=== PATIENT | male | born 1960 | race Caucasian/White ===

== ENCOUNTER → 2017-09-06 10:28 | Outpatient (CLI) | payer MEDICARE, MEDICAID, SELFPAY ==
[2017-09-06 10:41] LABS: Bacteria 0 SEEN /hpf (None Seen); Mucous, Urine 0 SEEN /hpf (<or=2+); Red Blood Cells-Urine 0 SEEN /hpf (0-5); Squamous Epithelial Cells - UA 0 SEEN /hpf (0-5); White Blood Cells 0 SEEN /hpf (0-5)
[2017-09-06 12:12] LABS: Absolute Lymphocyte Count 1.36 X10^3/ul (0.83-4.51); Absolute Neutrophil Count 3.2 X10^3/uL (2.0-7.7); Basophil# 0.02 X10^3/uL; Basophil% 0.4 % (0-1); Eosinophil# 0.27 X10^3/uL; Hematocrit 40.5 % (40-54); Hemoglobin 13.2 g/dl (13.0-16.5); Lymphocyte # 1.36 X10^3/ul (4.0); Lymphocyte % 25.2 % (19-41); Mean Corp Hgb Conc 32.6 g/gl (32-36); Mean Corpuscular Hgb 28.5 pg (27.0-32.0); Mean Corpuscular Volume 87.5 fL (80-94); Mean Platelet Vol. 11.2 fl (6.2-12.0); Monocyte# 0.51 X10^3/uL; Monocyte% 9.4 % (0-10); Neutrophil # 3.23 X10^3/uL (2.7-7.7); Neutrophil % 59.8 % (47-70); Platelet Count 139 K/mm3 (150-450); Red Blood Count 4.63 M/mm3 (4.6-6.2); White Blood Count 5.4 K/mm3 (4.4-11.0)
[2017-09-06 12:20] LABS: POSITIVE COUNT NO; POSITIVE DIFFERENTIAL NO; POSITIVE MORPHOLOGY NO
[2017-09-06 12:30] LABS: Color, Urine Yellow (Yellow); Glucose, Dipstick Normal (Normal); Ketone-Dipstick Negative (Negative); Leukocyte Esterase-Dipstick Negative /ul (Negative); Nitrite-Dipstick Negative (Negative); Occult Blood-Urine Negative /ul (Negative); Protein-Dipstick Negative (Negative); Urine Bilirubin Dipstick Negative (Negative); Urine Clarity Clear (Clear); Urine Urobilinogen Normal (Normal); Urine pH 6.5 (5.0 - 8.0)
[2017-09-06 12:38] LABS: Hemoglobin A1c 5.6 % (4.2-6.3)
[2017-09-06 12:42] LABS: Amphetamine Urine VISTA POSITIVE (<1000 ng/mL); Barbiturate Urine VISTA NEGATIVE (< 200 ng/mL); Benzodiazepine Urine VISTA NEGATIVE (< 200 ng/mL); Cocaine Urine VISTA NEGATIVE (< 300 ng/mL); Ecstacy Urine VISTA NEGATIVE (< 500 ng/mL); Methadone Urine VISTA NEGATIVE (< 300 ng/mL); PCP Urine VISTA NEGATIVE (< 25 ng/mL); THC Urine VISTA NEGATIVE (< 50 ng/mL); Vista UDS pH Range 6
[2017-09-06 12:50] LABS: AST(SGOT) 50 U/L (15-37); Alanine Aminotransfer ALT/SGPT 69 U/L (16-61); Albumin, Serum 3.4 g/dL (3.2-5.0); Alkaline Phosphatase 52 U/L (45-117); BUN 15 mg/dL (7-18); BUN/Creat Ratio 19.9 RATIO (10-20); Calcium,Total 8.2 mg/dL (8.5-10.1); Chloride 105 mmol/L (98-107); Creatinine, Serum 0.75 mg/dL (0.70-1.30); EST Glomerular Filtration Rate 113 mL/min (>60); Est Glom Filt Rate - Afr Amer 137 mL/min (>60); Globulin 3.5 g/dL (2.2-4.2); Glucose 86 mg/dL (74-106); Potassium 4.1 mmol/L (3.5-5.1); Protein, Total 6.9 g/dL (6.4-8.2); Sodium Level 139 mmol/L (136-145)
[2017-09-06 12:51] LABS: Anion Gap 5 (5-15); T4 Free Direct 1.76 ng/dL (0.76-1.46)
== END ==
PROVIDERS: Visit Provider Family Medicine
DX: R79.89 Other specified abnormal findings of blood chemistry (principal); E03.9 Hypothyroidism, unspecified; R73.02 Impaired glucose tolerance (oral); Z87.898 Personal history of other specified conditions
CPT/HCPCS: 36415; 80053; 80307; 81001; 83036; 84439; 84443; 85025

== ENCOUNTER → 2018-03-01 15:30 | Outpatient (CLI) | payer MEDICARE, MEDICAID, SELFPAY ==
[2018-03-01 17:04] LABS: Amphetamine Urine VISTA NEGATIVE (<1000 ng/mL); Barbiturate Urine VISTA NEGATIVE (< 200 ng/mL); Benzodiazepine Urine VISTA NEGATIVE (< 200 ng/mL); Cocaine Urine VISTA NEGATIVE (< 300 ng/mL); Ecstacy Urine VISTA NEGATIVE (< 500 ng/mL); Methadone Urine VISTA NEGATIVE (< 300 ng/mL); PCP Urine VISTA NEGATIVE (< 25 ng/mL); THC Urine VISTA NEGATIVE (< 50 ng/mL); Vista UDS pH Range 6
== END ==
PROVIDERS: Referring Provider Registered Nurse; Visit Provider Registered Nurse
DX: F19.10 Other psychoactive substance abuse, uncomplicated (principal); Z79.899 Other long term (current) drug therapy
CPT/HCPCS: 80307

== ENCOUNTER 2018-03-02 09:17 | Emergency (ER) | payer MEDICARE, MEDICAID, SELFPAY ==
[2018-03-02 09:19] VITALS: BP 168/97; PULSE 102; RESP 16; TEMP 36.4; O2SAT 99; BMI 20.7
[2018-03-02] MEDS: Haloperidol Lactate 5 MG/ML Vial IM (09:56)
[2018-03-02 10:09] LABS: Absolute Lymphocyte Count 1.28 X10^3/ul (0.83-4.51); Absolute Neutrophil Count 3.9 X10^3/uL (2.0-7.7); Basophil# 0.02 X10^3/uL; Basophil% 0.3 % (0-1); Eosinophil# 0.11 X10^3/uL; Eosinophils% 1.9 % (0-5); Hematocrit 43.3 % (40-54); Hemoglobin 14.5 g/dl (13.0-16.5); Lymphocyte # 1.28 X10^3/ul (4.0); Lymphocyte % 21.6 % (19-41); Mean Corp Hgb Conc 33.5 g/gl (32-36); Mean Corpuscular Hgb 29.9 pg (27.0-32.0); Mean Corpuscular Volume 89.3 fL (80-94); Mean Platelet Vol. 11.2 fl (6.2-12.0); Monocyte# 0.61 X10^3/uL; Monocyte% 10.3 % (0-10); Neutrophil # 3.88 X10^3/uL (2.7-7.7); Neutrophil % 65.6 % (47-70); Platelet Count 151 K/mm3 (150-450); RBC Distribution Width CV 16.3 % (11.6-14.6); RBC Distribution Width SD 53.3 fl (35.1-43.9); Red Blood Count 4.85 M/mm3 (4.6-6.2); White Blood Count 5.9 K/mm3 (4.4-11.0)
[2018-03-02 10:11] LABS: POSITIVE COUNT NO; POSITIVE DIFFERENTIAL NO; POSITIVE MORPHOLOGY NO
[2018-03-02 10:18] LABS: Amphetamine Urine VISTA NEGATIVE (<1000 ng/mL); Barbiturate Urine VISTA NEGATIVE (< 200 ng/mL); Benzodiazepine Urine VISTA NEGATIVE (< 200 ng/mL); Cocaine Urine VISTA NEGATIVE (< 300 ng/mL); Ecstacy Urine VISTA NEGATIVE (< 500 ng/mL); Methadone Urine VISTA NEGATIVE (< 300 ng/mL); PCP Urine VISTA NEGATIVE (< 25 ng/mL); THC Urine VISTA NEGATIVE (< 50 ng/mL); Vista UDS pH Range 7
[2018-03-02 10:25] LABS: Alcohol, Blood (Medical)-Serum < 3.0 mg/dL
[2018-03-02 10:38] LABS: ALB/GLOB Ratio 0.9 RATIO (0.9-2.4); AST(SGOT) 37 U/L (15-37); Alanine Aminotransfer ALT/SGPT 50 U/L (16-61); Alkaline Phosphatase 74 U/L (45-117); Anion Gap 2 (5-15); BUN 16 mg/dL (7-18); BUN/Creat Ratio 19.7 RATIO (10-20); Chloride 103 mmol/L (98-107); Creatinine, Serum 0.81 mg/dL (0.70-1.30); EST Glomerular Filtration Rate 103 mL/min (>60); Est Glom Filt Rate - Afr Amer 125 mL/min (>60); Estimated Creatinine Clearance 89.42 ml/min; Globulin 4.3 g/dL (2.2-4.2); Glucose 112 mg/dL (74-106); Potassium 3.9 mmol/L (3.5-5.1); Protein, Total 8.3 g/dL (6.4-8.2); Sodium Level 138 mmol/L (136-145)
--- NOTE | 2018-03-02 10:48 | ED.VISSUMM ---
- ER Visit Summary Date of Service: 03/02/18 Chief Complaint: Agitated History of Present Illness: The patient is a [address] Montoya from the [facility]. He has a history of schizophrenia. He has been living in a [facility] for approximately 3 weeks and has been taking his medications appropriately. However, over the past couple of days they report that he has been more agitated and paranoid than usual. He has been screaming and yelling. He saw the psychiatrist yesterday and was not able to hold a conversation. He is appears internally activated and is speaking to people that are not there. They are asking that he be medically cleared and hospitalized. Review of systems: General: No fever, chills, cold sweats. Cardiovascular: No chest pain, palpitations. Respiratory: No cough, shortness of breath, dyspnea on exertion. Gastrointestinal: No abdominal pain, nausea, vomiting, diarrhea, melena, or hematochezia. Genitourinary: No dysuria, frequency, hematuria. Skin: No rash. Neuro: No headache, numbness, weakness. Physical Examination: Vitals: Stable. Afebrile. General: Well-nourished and well-developed. Head: Normocephalic atraumatic. Neck: Supple, no lymphadenopathy. No JVD. Nontender. Cardiovascular: Regular rate and rhythm. No murmurs. Respiratory: No respiratory distress. Clear to auscultation bilaterally. Abdominal: Soft, nontender, nondistended, normal bowel sounds. No guarding, rebound, or peritoneal signs. Back: Nontender. Extremities: Nontender, no edema. Skin: Normal color, no rash. Neurologic: Alert and oriented ?3. Cranial nerves II through XII are intact. Normal strength and sensation. Mental status exam: Patient appears their stated age. Good posture and grooming. Poor eye contact. Normal rate, volume, and latency of speech. No suicidal or homicidal ideation. No auditory or visual hallucinations. Flow of thought is tangential. Insight and judgment is poor. Test Results: CBC is normal. Tox screen is negative. Alcohol is negative. Chem-7 is remarkable for CO2 of 33 and glucose of 112. TSH is elevated at 19.8. LFTs are marked for total protein of 8.3 and globulin of 4.3. Emergency Department Course and Treatment: Patient is clearly internally stimulated. He is having conversations that are nonsensical and with people that are not present. He was given a dose of Haldol IM. Treatment Plan: Patient was discussed with the counseling center. They will be in to see him and arrange for admission to a psychiatric facility. Disposition: Pending. Impression: 1. Schizophrenia exacerbation. 2. Elevated TSH. This note was generated with [employer] dictation software. It may contain incorrect words, spelling, and punctuation that were not noted in review of the chart prior to signing ED Disposition - Plan for ED Patient: Chief Complaint: Mental Status Change Referrals: Care Physician,No Primary [Primary Care Provider] -
--- NOTE | 2018-03-02 10:51 | ED.DCSUM_ITS ---
- ER Visit Summary Date of Service: 03/02/18 Chief Complaint: Agitated History of Present Illness: The patient is a [address] Montoya from the counseling center. He has a history of schizophrenia. He has been living in a [facility] for approximately 3 weeks and has been taking his medications appr opriately. However, over the past couple of days they report that he has been more agitated and paranoid than usual. He has been screaming and yelling. He saw the psychiatrist yesterday and was not able to hold a conversation. He is appears internally activated and is speaking to people that are not there. They are asking that he be medically cleared and hospitalized. Review of systems: General: No fever, chills, cold sweats. Cardiovascular: No chest pain, palpitations. Respiratory: No cough, shortness of breath, dyspnea on exertion. Gastrointestinal: No abdominal pain, nausea, vomiting, diarrhea, melena, or hematochezia. Genitourinary: No dysuria, frequency, hematuria. Skin: No rash. Neuro: No headache, numbness, weakness. Physical Examination: Vitals: Stable. Afebrile. General: Well-nourished and well-developed. Head: Normocephalic atraumatic. Neck: Supple, no lymphadenopathy. No JVD. Nontender. Cardiovascular: Regular rate and rhythm. No murmurs. Respiratory: No respiratory distress. Clear to auscultation bilaterally. Abdominal: Soft, nontender, nondistended, normal bowel sounds. No guarding, rebound, or peritoneal signs. Back: Nontender. Extremities: Nontender, no edema. Skin: Normal color, no rash. Neurologic: Alert and oriented ?3. Cranial nerves II through XII are intact. Normal strength and sensation. Mental status exam: Patient appears their stated age. Good posture and grooming. Poor eye contact. Normal rate, volume, and latency of speech. No suicidal or homicidal ideation. No auditory or visual hallucinations. Flow of thought is tangential. Insight and judgment is poor. Test Results: CBC is normal. Tox screen is negative. Alcohol is negative. Chem-7 is remarkable for CO2 of 33 and glucose of 112. TSH is elevated at 19.8. LFTs are marked for total protein of 8.3 and globulin of 4.3. Emergency Department Course and Treatment: Patient is clearly internally stimulated. He is having conversations that are nonsensical and with people that are not present. He was given a dose of Haldol IM. Treatment Plan: Patient was discussed with the counseling center. They will be in to see him and arrange for admission to a psychiatric facility. Disposition: Pending. Impression: 1. Schizophrenia exacerbation. 2. Elevated TSH. This note was generated with [employer] dictation software. It may contain incorrect words, spelling, and punctuation that were not noted in review of the chart prior to signing ED Disposition - Plan for ED Patient: Chief Complaint: Mental Status Change Referrals: Care Physician,No Primary [Primary Care Provider] -
--- NOTE | 2018-03-02 10:51 | NURSING ---
ROSA WITH CRISIS WILL BE IN SHORTLY TO EVAL PT
--- NOTE | 2018-03-02 11:17 | NURSING ---
ROSA WITH CRISIS IS HERE
--- NOTE | 2018-03-02 11:46 | ED.RN ---
PATIENT CALM FOR THIS NURSE AND EASY TO DEESCALATE. PT ALERT AND ORIENTED. PT APPEARS AGITATED THAT HE IS IN THE ER AND DOESN'T EXACTLY UNDERSTAND WHY HE IS HERE. PT GIVEN SODA, SANDWICH, COOKIES, AND A WARM BLANKET WHY HE WAITS FOR CRISIS.
--- NOTE | 2018-03-02 12:50 | ED.RN ---
PER ROSA WITH CRISIS; WAITING ON GUARDIAN TO CALL HER FOR CONSENT TO TREAT
--- NOTE | 2018-03-02 13:40 | ED.RN ---
PATIENT WAS BEING COOPERATIVE AND COMPLIANT UNTIL ABRUPTLY STATING HE LEAVING. CRISIS HAD REPORTED THAT PATIENT WAS NOT PINK SLIPPED AND COULD NOT BE PINK SLIPPED UNTIL CONTACTING GUARDIAN. RN ATTEMPTED TO ASK PATIENT TO STAY, BUT PT DECIDED TO LEAVE ANYWAY. SECURITY CALLED AND PHYSICIAN NOTIFIED.
--- NOTE | 2018-03-02 13:56 | ED.RN ---
PATIENT IS BEING VERBALLY ABUSIVE AND ESCALATING IN AGITATION. POICE OFFICER IS PRESENT AT THIS TIME WE ARE ATTEPTING TO HAVE PT FOLLOW DIRECTIONS AND GET IN A GOWN FOR HIS SAFETY.
[2018-03-02 14:05] VITALS: BP 149/80; PULSE 120; RESP 17; O2SAT 95
[2018-03-02] MEDS: Ziprasidone IM 20 MG/ML VIAL IM (14:05)
--- NOTE | 2018-03-02 15:35 | ED.RN ---
PER ROSA WITH CRISIS; PT HAS BEEN REFERRED TO [facility]
[2018-03-02 16:05] VITALS: RESP 13
--- NOTE | 2018-03-02 18:00 | ED.RN ---
PER MERRILL WITH CRISIS [facility] PT; [facility], RIGHT NOW SHE IS IN [facility]
[2018-03-02 18:09] VITALS: BP 145/103; PULSE 95; RESP 17; O2SAT 95
--- NOTE | 2018-03-02 19:28 | ED.RN ---
SELMA, CRISIS COUNSELOR ON PHONE WITH THIS RN. REPORTS THAT PT HAS BEEN REFUSED AT [facility]. SHE REPORTS SHE IS WORKING ON PLACEMENT CURRENTLY AND WILL CALL BACK WITH UPDATES ON PLAN OF CARE.
[2018-03-02 20:39] VITALS: RESP 12
[2018-03-02] MEDS: Benztropine 2 MG Tablet PO (22:29)
[2018-03-02] MEDS: traZODone 100 MG Tablet PO (22:29)
[2018-03-02 22:33] VITALS: BP 147/99; PULSE 96; RESP 17; O2SAT 97
[2018-03-03 00:09] VITALS: RESP 12
--- NOTE | 2018-03-03 00:45 | NURSING ---
ACCEPTED TO [facility] BY DR. SOOD [id number] REPORT
[2018-03-03 01:52] VITALS: BP 144/99; PULSE 96; RESP 15; O2SAT 97
== END 2018-03-03 01:48 ==
PROVIDERS: Emergency Provider Emergency Medicine
DX: F20.9 Schizophrenia, unspecified (principal); R79.89 Other specified abnormal findings of blood chemistry; K21.9 Gastro-esophageal reflux disease without esophagitis; E03.9 Hypothyroidism, unspecified; Z79.899 Other long term (current) drug therapy; Z72.0 Tobacco use
CPT/HCPCS: 80053; 80307; 80320; 84443; 85025; 96372; 99285; G0480; J3486

== ENCOUNTER → 2018-03-14 10:39 | Outpatient (CLI) | payer MEDICARE, MEDICAID, SELFPAY ==
[2018-03-14 12:16] LABS: Absolute Neutrophil Count 4.5 X10^3/uL (2.0-7.7); Basophil# 0.02 X10^3/uL; Basophil% 0.3 % (0-1); Eosinophil# 0.12 X10^3/uL; Eosinophils% 1.8 % (0-5); Hematocrit 44.2 % (40-54); Hemoglobin 14.3 g/dl (13.0-16.5); Lymphocyte % 17.9 % (19-41); Mean Corp Hgb Conc 32.4 g/gl (32-36); Mean Corpuscular Volume 89.7 fL (80-94); Mean Platelet Vol. 11.7 fl (6.2-12.0); Monocyte# 0.83 X10^3/uL; Monocyte% 12.4 % (0-10); Neutrophil # 4.51 X10^3/uL (2.7-7.7); Neutrophil % 67.3 % (47-70); Platelet Count 168 K/mm3 (150-450); RBC Distribution Width CV 15.9 % (11.6-14.6); RBC Distribution Width SD 51.6 fl (35.1-43.9); Red Blood Count 4.93 M/mm3 (4.6-6.2); White Blood Count 6.7 K/mm3 (4.4-11.0)
[2018-03-14 12:23] LABS: POSITIVE COUNT NO; POSITIVE DIFFERENTIAL NO; POSITIVE MORPHOLOGY NO
[2018-03-14 12:37] LABS: Hemoglobin A1c 5.6 % (4.2-6.3)
[2018-03-14 12:50] LABS: AST(SGOT) 37 U/L (15-37); Alanine Aminotransfer ALT/SGPT 55 U/L (16-61); Albumin, Serum 3.9 g/dL (3.2-5.0); Alkaline Phosphatase 65 U/L (45-117); Anion Gap 8 (5-15); BUN 15 mg/dL (7-18); BUN/Creat Ratio 19.6 RATIO (10-20); Calcium,Total 8.8 mg/dL (8.5-10.1); Chloride 104 mmol/L (98-107); Creatinine, Serum 0.77 mg/dL (0.70-1.30); EST Glomerular Filtration Rate 111 mL/min (>60); Est Glom Filt Rate - Afr Amer 134 mL/min (>60); Glucose 95 mg/dL (74-106); Potassium 4.6 mmol/L (3.5-5.1); Protein, Total 7.9 g/dL (6.4-8.2); Sodium Level 140 mmol/L (136-145)
== END ==
PROVIDERS: Visit Provider Family Medicine
DX: B19.20 Unspecified viral hepatitis C without hepatic coma (principal); R73.02 Impaired glucose tolerance (oral); E03.9 Hypothyroidism, unspecified; F17.210 Nicotine dependence, cigarettes, uncomplicated
CPT/HCPCS: 36415; 80053; 83036; 84443; 85025; 87521

== ENCOUNTER 2018-06-15 09:10 | Emergency (ER) | payer MEDICARE, SELFPAY ==
[2018-06-15 09:12] VITALS: BP 119/88; PULSE 79; RESP 16; TEMP 36.2; O2SAT 97; BMI 22.6
--- NOTE | 2018-06-15 09:55 | RAD_ITS ---
STUDY: X-RAY CHEST REASON FOR EXAM: Male, 58 years old. Lethargy, cough TECHNIQUE: Single AP portable view of the chest. COMPARISON: 2013 FINDINGS: The lungs are clear and expanded. There is no demonstrated pleural abnormality. Normal size heart. Normal mediastinum and polly. Normal visualized pulmonary arteries. Normal visualized aortic arch and descending thoracic aorta. Normal visualized thoracic spine. Normal visualized ribs, clavicles, and shoulders. There is no demonstrated abnormality of the visualized soft tissue structures of the upper abdomen. RAD/Chest 1 View (Portable) IMPRESSION: No acute pulmonary process Electronically Signed: Eliazar Rodas MD at 10:25 EST , Service support ,
--- NOTE | 2018-06-15 09:55 | EKG12_ITS ---
Test Reason : OVERDOSE Blood Pressure : / mmHG Vent. Rate : 066 BPM Atrial Rate : 066 BPM P-R Int : 180 ms QRS Dur : 080 ms QT Int : 408 ms P-R-T Axes : 070 031 051 degrees QTc Int : 427 ms Normal sinus rhythm Possible Left atrial enlargement Borderline ECG Confirmed by JACOB DEE, DEAN ([id number]), video news editor ITZEL PEARCE ([id number]) on 06/19/2018 10:39:15 AM Referred By: FREDERICK Confirmed By:DEAN JAMES MD
--- NOTE | 2018-06-15 09:56 | ED.VISSUMM ---
- ER Visit Summary Date of Service: 06/15/18 Chief Complaint: Overdose History of Present Illness: The patient is a 58 M who presents with his piano case maker for concern for overdose. Unable to obtain history from the patient secondary to his mental state. passport support manager states the patient took too much of his medications, believed to have been because he missed a dose and then was trying to make up for the missed doses. This happened in the last 1 or 2 days. It is not thought that it was an intentional attempt at self-harm. Patient has not been eating or drinking. He has more distress than usual. He has history of schizophrenia and psychotic symptoms. Patient states he uses marijuana but denies any other drug use. Patient is not answering questions related to review of systems. Patient lives in a group apartment living situation. Remainder of history limited secondary to patient cooperation. Physical Examination: Patient is unkempt appearing, afebrile and hemodynamically stable, no hypoxia, airway is patent, patient is laying in bed, with frequent movement of his legs, he is mumbling to himself, patient then suddenly jumped up and step towards me, walked around to the bed and now is standing shifting his weight from side to side, moaning, speaking between clenched jaw and seeing things not relevant to the conversation. No respiratory distress. No focal neuro deficits noted. Exam limited secondary to patient's extreme agitation and confrontational stance. Test Results: Abnormal Lab Results 06/15/18 06/15/18 06/15/18 11:00 11:00 11:00 WBC 7.3 RBC 5.72 Hgb 16.6 H Hct 48.6 MCV 85.0 MCH 29.0 MCHC 34.2 RDW 14.2 RDW Differential 44.0 H Plt Count 154 MPV 11.4 Immature Gran % (Auto) 0.300 Neut % (Auto) 72.7 H Lymph % (Auto) 17.[address] [place] % (Auto) 8.1 Eos % (Auto) 0.7 Baso % (Auto) 0.3 Absolute Neuts (auto) 5.3 Absolute Lymphs (auto) 1.31 Total Counted Not Reportable Sodium 136 Potassium 5.1 Chloride 102 Carbon Dioxide 26.0 Anion Gap 8 BUN 19 H Creatinine 0.96 Estim Creat Clear Calc 74.42 Est GFR (MDRD) Af Amer 104 Est GFR (MDRD) Non-Af 86 BUN/Creatinine Ratio 19.9 Glucose 90 Calcium 9.3 Total Bilirubin 0.70 AST 104 H ALT 111 H Alkaline Phosphatase 74 Total Protein 8.4 H Albumin 4.2 Globulin 4.2 Albumin/Globulin Ratio 1.0 Urine Color Urine Clarity Urine pH Ur Specific [place] Urine Protein Urine Glucose (UA) Urine Ketones Urine Occult Blood Urine Nitrite Urine Bilirubin Urine Urobilinogen Ur Leukocyte Esterase Urine RBC Urine WBC Ur Squamous Epith Cells Urine Bacteria Urine Mucus Salicylates Urine Opiates Screen Urine Methadone Screen Acetaminophen Ur Barbiturates Screen Ur Phencyclidine Scrn Ur Amphetamines Screen U Methamphetamin-MDMA U Benzodiazepines Scrn Urine Cocaine Screen U Cannabinoids Screen Ur Drug Screen Comment Ethyl Alcohol < 3.0 06/15/18 06/15/18 06/15/18 11:00 11:02 11:02 WBC RBC Hgb Hct MCV MCH MCHC RDW RDW Differential Plt Count MPV Immature Gran % (Auto) Neut % (Auto) Lymph % (Auto) [place] % (Auto) Eos % (Auto) Baso % (Auto) Absolute Neuts (auto) Absolute Lymphs (auto) Total Counted Sodium Potassium Chloride Carbon Dioxide Anion Gap BUN Creatinine Estim Creat Clear Calc Est GFR (MDRD) Af Amer Est GFR (MDRD) Non-Af BUN/Creatinine Ratio Glucose Calcium Total Bilirubin AST ALT Alkaline Phosphatase Total Protein Albumin Globulin Albumin/Globulin Ratio Urine Color Yellow Urine Clarity Clear Urine pH 7.0 Ur Specific [place] 1.010 Urine Protein 30 H Urine Glucose (UA) Normal Urine Ketones 5 H Urine Occult Blood Negative Urine Nitrite Negative Urine Bilirubin Negative Urine Urobilinogen 1 H Ur Leukocyte Esterase 25 H Urine RBC 0 SEEN Urine WBC 0 SEEN Ur Squamous Epith Cells 0 SEEN Urine Bacteria 0 SEEN Urine Mucus 0 SEEN Salicylates 2.6 L Urine Opiates Screen NEGATIVE Urine Methadone Screen NEGATIVE Acetaminophen < 2.0 L Ur Barbiturates Screen NEGATIVE Ur Phencyclidine Scrn NEGATIVE Ur Amphetamines Screen NEGATIVE U Methamphetamin-MDMA NEGATIVE U Benzodiazepines Scrn NEGATIVE Urine Cocaine Screen NEGATIVE U Cannabinoids Screen POSITIVE H Ur Drug Screen Comment Ethyl Alcohol Clinical Impression(s) from Imaging Studies Chest X-Ray 06/15/18 09:55 IMPRESSION: No acute pulmonary process Electronically Signed: Eliazar Rodas MD at 10:25 EST , Service support , Medications Given Discontinued Medications Ziprasidone (Geodon Im) 20 mg IM X1 ONE Stop: 06/15/18 09:56 Last Admin: 06/15/18 10:55 Dose: 20 mg Emergency Department Course and Treatment: Patient was given a dose of Geodon IM due to his significant agitation. Patient calmed down and workup was able to be performed. Patient still was not answering questions appropriately in order to provide any additional history. EKG and labs will be performed. Patient had a sinus rhythm with no QTC prolongation on EKG. Labs showed no leukocytosis, anemia, electrolyte derangements, renal dysfunction, or significant hepatic dysfunction. Patient had mild elevation of AST and ALT, but not greater than 2 to 3 times the upper limit normal, and review of patient's chart shows chronic elevation similar to values today. Urine was negative for infection. Salicylate and acetaminophen were negative. Ethanol level negative. Tox positive only for THC. No findings on patient's workup that indicate specific overdose that would require further workup or admission. Patient was medically cleared for evaluation by crisis counselor. Due to his increased agitation and presentation concerning for acute psychosis, he will be admitted for further psychiatric workup. Final disposition is pending placement into an inpatient facility. Treatment Plan: [] Disposition: [] Impression: Agitation, medication noncompliance, acute psychosis This note was generated with [employer] dictation software. It may contain incorrect words, spelling, and punctuation that were not noted in review of the chart prior to signing ED Disposition - Plan for ED Patient: Referrals: Care Physician,No Primary [NON-STAFF] -
--- NOTE | 2018-06-15 09:59 | ED.DCSUM_ITS ---
- ER Visit Summary Date of Service: 06/15/18 Chief Complaint: Overdose History of Present Illness: The patient is a 58 M who presents with his case checker for concern for overdose. Unable to obtain history from the patient secondary to his mental state. retail department manager states the patient took too much of his medications, believed to have been because he missed a dose and then was trying to make up for the missed doses. This happened in the last 1 or 2 days. It is not thought that it was an intentional attempt at self-harm. Patient has not been eating or drinking. He has more distress than usual. He has history of schizophrenia and psychotic symptoms. Patient states he uses marijuana but denies any other drug use. Patient is not answering questions related to review of systems. Patient lives in a group apartment living situation. Remainder of history limited secondary to patient cooperation. Physical Examination: Patient is unkempt appearing, afebrile and hemodynamically stable, no hypoxia, airway is patent, patient is laying in bed, with frequent movement of his legs, he is mumbling to himself, patient then suddenly jumped up and step towards me, walked around to the bed and now is standing shifting his weight from side to side, moaning, speaking between clenched jaw and seeing things not relevant to the conversation. No respiratory distress. No focal neuro deficits noted. Exam limited secondary to patient's extreme agitation and confrontational sta nce. Test Results: Abnormal Lab Results 06/15/18 06/15/18 06/15/18 11:00 11:00 11:00 WBC 7.3 RBC 5.72 Hgb 16.6 H Hct 48.6 MCV 85.0 MCH 29.0 MCHC 34.2 RDW 14.2 RDW Differential 44.0 H Plt Count 154 MPV 11.4 Immature Gran % (Auto) 0.300 Neut % (Auto) 72.7 H Lymph % (Auto) 17.9 L [place] % (Auto) 8.1 Eos % (Auto) 0.7 Baso % (Auto) 0.3 Absolute Neuts (auto) 5.3 Absolute Lymphs (auto) 1.31 Total Counted Not Reportable Sodium 136 Potassium 5.1 Chloride 102 Carbon Dioxide 26.0 Anion Gap 8 BUN 19 H Creatinine 0.96 Estim Creat Clear Calc 74.42 Est GFR (MDRD) Af Amer 104 Est GFR (MDRD) Non-Af 86 BUN/Creatinine Ratio 19.9 Glucose 90 Calcium 9.3 Total Bilirubin 0.70 AST 104 H ALT 111 H Alkaline Phosphatase 74 Total Protein 8.4 H Albumin 4.2 Globulin 4.2 Albumin/Globulin Ratio 1.0 Urine Color Urine Clarity Urine pH Ur Specific [place] Urine Protein Urine Glucose (UA) Urine Ketones Urine Occult Blood Urine Nitrite Urine Bilirubin Urine Urobilinogen Ur Leukocyte Esterase Urine RBC Urine WBC Ur Squamous Epith Cells Urine Bacteria Urine Mucus Salicylates Urine Opiates Screen Urine Methadone Screen Acetaminophen Ur Barbiturates Screen Ur Phencyclidine Scrn Ur Amphetamines Screen U Methamphetamin-MDMA U Benzodiazepines Scrn Urine Cocaine Screen U Cannabinoids Screen Ur Drug Screen Comment Ethyl Alcohol < 3.0 06/15/18 06/15/18 06/15/18 11:00 11:02 11:02 WBC RBC Hgb Hct MCV MCH MCHC RDW RDW Differential Plt Count MPV Immature Gran % (Auto) Neut % (Auto) Lymph % (Auto) [place] % (Auto) Eos % (Auto) Baso % (Auto) Absolute Neuts (auto) Absolute Lymphs (auto) Total Counted Sodium Potassium Chloride Carbon Dioxide Anion Gap BUN Creatinine Estim Creat Clear Calc Est GFR (MDRD) Af Amer Est GFR (MDRD) Non-Af BUN/Creatinine Ratio Glucose Calcium Total Bilirubin AST ALT Alkaline Phosphatase Total Protein Albumin Globulin Albumin/Globulin Ratio Urine Color Yellow Urine Clarity Clear Urine pH 7.0 Ur Specific [place] 1.010 Urine Protein 30 H Urine Glucose (UA) Normal Urine Ketones 5 H Urine Occult Blood Negative Urine Nitrite Negative Urine Bilirubin Negative Urine Urobilinogen 1 H Ur Leukocyte Esterase 25 H Urine RBC 0 SEEN Urine WBC 0 SEEN Ur Squamous Epith Cells 0 SEEN Urine Bacteria 0 SEEN Urine Mucus 0 SEEN Salicylates 2.6 L Urine Opiates Screen NEGATIVE Urine Methadone Screen NEGATIVE Acetaminophen < 2.0 L Ur Barbiturates Screen NEGATIVE Ur Phencyclidine Scrn NEGATIVE Ur Amphetamines Screen NEGATIVE U Methamphetamin-MDMA NEGATIVE U Benzodiazepines Scrn NEGATIVE Urine Cocaine Screen NEGATIVE U Cannabinoids Screen POSITIVE H Ur Drug Screen Comment Ethyl Alcohol Clinical Impression(s) from Imaging Studies Chest X-Ray 06/15/18 09:55 IMPRESSION: No acute pulmonary process Electronically Signed: Eliazar Rodas MD at 10:25 EST , Service support , Medications Given Discontinued Medications Ziprasidone (Geodon Im) 20 mg IM X1 ONE Stop: 06/15/18 09:56 Last Admin: 06/15/18 10:55 Dose: 20 mg Emergency Department Course and Treatment: Patient was given a dose of Geodon IM due to his significant agitation. Patient calmed down and workup was able to be performed. Patient still was not answering questions appropriately in order to provide any additional history. EKG and labs will be performed. Patient had a sinus rhythm with no QTC prolongation on EKG. Labs showed no leukocytosis, anemia, electrolyte derangements, renal dysfunction, or significant hepatic dysfunction. Patient had mild elevation of AST and ALT, but not greater than 2 to 3 times the upper limit normal, and review of patient's chart shows chronic elevation similar to values today. Urine was negative for infection. Salicylate and acetaminophen were negative. Ethanol level negative. Tox positive only for THC. No findings on patient's workup that indicate specific overdose that would require further workup or admission. Patient was medically cleared for evaluation by crisis counselor. Due to his increased agitation and presentation concerning for acute psychosis, he will be admitted for further psychiatric workup. Final disposition is pending placement into an inpatient facility. Treatment Plan: [] Disposition: [] Impression: Agitation, medication noncompliance, acute psychosis This note was generated with [employer] software. It may contain incorrect words, spelling, and punctuation that were not noted in review of the chart prior to signing ED Disposition - Plan for ED Patient: Referrals: Care Physician,No Primary [NON-STAFF] -
[2018-06-15] MEDS: Ziprasidone IM 20 MG/ML VIAL IM (10:55)
[2018-06-15 11:13] LABS: Bacteria 0 SEEN /hpf (None Seen); Mucous, Urine 0 SEEN /hpf (<or=2+); Red Blood Cells-Urine 0 SEEN /hpf (0-5); Squamous Epithelial Cells - UA 0 SEEN /hpf (0-5); White Blood Cells 0 SEEN /hpf (0-5)
[2018-06-15 11:19] LABS: Absolute Lymphocyte Count 1.31 X10^3/ul (0.83-4.51); Absolute Neutrophil Count 5.3 X10^3/uL (2.0-7.7); Basophil# 0.02 X10^3/uL; Basophil% 0.3 % (0-1); Eosinophil# 0.05 X10^3/uL; Eosinophils% 0.7 % (0-5); Hematocrit 48.6 % (40-54); Hemoglobin 16.6 g/dl (13.0-16.5); Lymphocyte # 1.31 X10^3/ul (4.0); Lymphocyte % 17.9 % (19-41); Mean Corp Hgb Conc 34.2 g/gl (32-36); Mean Platelet Vol. 11.4 fl (6.2-12.0); Monocyte# 0.59 X10^3/uL; Monocyte% 8.1 % (0-10); Neutrophil # 5.32 X10^3/uL (2.7-7.7); Neutrophil % 72.7 % (47-70); Platelet Count 154 K/mm3 (150-450); RBC Distribution Width CV 14.2 % (11.6-14.6); Red Blood Count 5.72 M/mm3 (4.6-6.2); White Blood Count 7.3 K/mm3 (4.4-11.0)
[2018-06-15 11:22] LABS: Color, Urine Yellow (Yellow); Glucose, Dipstick Normal (Normal); Ketone-Dipstick 5 mg/dl (Negative); Leukocyte Esterase-Dipstick 25 /ul (Negative); Nitrite-Dipstick Negative (Negative); Occult Blood-Urine Negative /ul (Negative); Protein-Dipstick 30 mg/dl (Negative); Urine Bilirubin Dipstick Negative (Negative); Urine Clarity Clear (Clear); Urine Urobilinogen 1 mg/dl (Normal)
[2018-06-15 11:24] LABS: POSITIVE COUNT NO; POSITIVE DIFFERENTIAL NO; POSITIVE MORPHOLOGY NO
[2018-06-15 11:28] LABS: Amphetamine Urine VISTA NEGATIVE (<1000 ng/mL); Barbiturate Urine VISTA NEGATIVE (< 200 ng/mL); Benzodiazepine Urine VISTA NEGATIVE (< 200 ng/mL); Cocaine Urine VISTA NEGATIVE (< 300 ng/mL); Ecstacy Urine VISTA NEGATIVE (< 500 ng/mL); Methadone Urine VISTA NEGATIVE (< 300 ng/mL); PCP Urine VISTA NEGATIVE (< 25 ng/mL); THC Urine VISTA POSITIVE (< 50 ng/mL); Vista UDS pH Range 6
[2018-06-15 11:40] LABS: Alcohol, Blood (Medical)-Serum < 3.0 mg/dL
[2018-06-15 11:41] LABS: AST(SGOT) 104 U/L (15-37); Alanine Aminotransfer ALT/SGPT 111 U/L (16-61); Albumin, Serum 4.2 g/dL (3.2-5.0); Alkaline Phosphatase 74 U/L (45-117); Anion Gap 8 (5-15); BUN 19 mg/dL (7-18); BUN/Creat Ratio 19.9 RATIO (10-20); Calcium,Total 9.3 mg/dL (8.5-10.1); Chloride 102 mmol/L (98-107); Creatinine, Serum 0.96 mg/dL (0.70-1.30); EST Glomerular Filtration Rate 86 mL/min (>60); Est Glom Filt Rate - Afr Amer 104 mL/min (>60); Estimated Creatinine Clearance 74.42 ml/min; Globulin 4.2 g/dL (2.2-4.2); Glucose 90 mg/dL (74-106); Potassium 5.1 mmol/L (3.5-5.1); Protein, Total 8.4 g/dL (6.4-8.2); Sodium Level 136 mmol/L (136-145)
[2018-06-15 11:48] LABS: Acetaminophen (Tylenol) Level < 2.0 ug/mL (10.0-30.0); Salicylate 2.6 mg/dL (2.8-20.0)
--- NOTE | 2018-06-15 12:20 | CM.ED ---
SOCIAL WORK NOTE DISCUSSED PT'S CASE WITH DR. MACK. PER DR. MACK PT NEEDING CRISIS EVALUATION FOR PLACEMENT. KEISHA WIGGINS, CHIEF SCIENTIST, EXHIBITION ORGANISER.
--- NOTE | 2018-06-15 12:24 | ED.RN ---
CRISIS HAS BEEN NOTIFIED THAT THE PT NEEDS EVALUATED AND PLACED
[2018-06-15 12:28] VITALS: BP 157/96; PULSE 89; RESP 16; O2SAT 10
[2018-06-15 15:03] VITALS: BP 148/79; PULSE 91; RESP 14; O2SAT 97
[2018-06-15 16:44] VITALS: BP 144/86; PULSE 70; RESP 16; TEMP 32.8; O2SAT 99
[2018-06-15 17:38] VITALS: RESP 18
--- NOTE | 2018-06-15 18:15 | ED.RN ---
REPORT AND BELONGINGS GIVEN TO TRANSPORTING SQUAD.
== END 2018-06-15 18:15 ==
PROVIDERS: Emergency Provider Emergency Medicine; Family Provider Family Medicine; PCP Family Medicine
DX: R45.1 Restlessness and agitation (principal); Z91.14 Patient's other noncompliance with medication regimen; F23 Brief psychotic disorder; F20.9 Schizophrenia, unspecified; F12.90 Cannabis use, unspecified, uncomplicated; Z79.899 Other long term (current) drug therapy
CPT/HCPCS: 71045; 80053; 80307; 80320; 80329; 81001; 85025; 93005; 96372; 99283; G0480; J3486

== ENCOUNTER 2018-09-02 13:19 | Emergency (ER) | payer MEDICARE, SELFPAY ==
[2018-09-02 13:19] VITALS: BP 162/100; PULSE 85; RESP 16; TEMP 36.6; O2SAT 99; BMI 21.2
--- NOTE | 2018-09-02 13:45 | ED.DCSUM_ITS ---
- ER Visit Summary Date of Service: 09/02/18 Chief Complaint: Lower abdominal abscesses History of Present Illness: The patient is a 58 M history of hep C and schizophrenia. Patient states for the last week he is an abdominal wall abscess at times and has puslike drainage. He denies any fever. Says today he bumped the wound and is hurt more now is larger. He denies any fever or chills. He denies any prior history. Physical Examination: Well-appearing middle-age male. No acute distress. Vital signs are stable and afebrile. HEENT exam poor dentition. Neck nontender no lymphadenopathy. Lungs clear to auscultation bilaterally. Heart regular rhythm no murmur. Rate about 80. Abdomen is soft. He has a 2 inch raised but appears to be abdominal wall abscess on his right lower abdomen. There is mild relative redness and cellulitis about 3 inches around the wound. Currently there is no discharge. There is mild fluctuance. No peritoneal signs. Patient is moving all 4 extremities. Neurovascular intact. Back is nontender. Neurologically is awake and alert with no focal motor deficits. Test Results: None Emergency Department Course and Treatment: Incision and drainage by ER physician of abdominal wall abscess. Let applied to the wound. Cleaned with iodine. Locally anesthetized 1% lidocaine. Horizontal incision made approximately 1 inch. Is able to express 1 to 2 cc of pus. I broke up any loculations and probed the wound with forceps. Irrigated the wound out. Placed about 5 inches of quarter inch gauze for packing Allevyn open. Patient tolerated procedure well. He was given wound care instructions. First dose of both antibiotics to be given in the ER. Treatment Plan: Keflex and Bactrim each daily for 10 days. Follow-up with his doctor this week to have the packing removed in 4 to 5 days. Return if feeling worse. Disposition: Discharge Impression: Abdominal wall abscess Incision and drainage by ER History of schizophrenia and hep C This note was generated with [employer] dictation software. It may contain incorrect words, spelling, and punctuation that were not noted in review of the chart prior to signing ED Disposition - Plan for ED Patient: Referrals: Robin Ocampo MD [Primary Care Provider] -
--- NOTE | 2018-09-02 14:33 | ED.DEP ---
ED Disposition - Plan for ED Patient: Disposition: Home or Assisted Living Instructions: ED Abscess IandD Prescriptions: Cephalexin [Keflex] 500 mg PO Q6 10 Days cap Smz/Tmp Ds [Bactrim Ds] 1 tab PO BID #20 tab Referrals: Robin Ocampo MD [Primary Care Provider] - 3-5 Days Additional Instructions: Warm compresses, warm soaks or hot shower to your dominant wall abscess. The packing gauze needs to come out in 4 to 5 days. Follow-up with your doctor later this week to ensure this is improving. Return to ER if you are feeling worse, redness is spreading across her abdominal wall or you develop a fever. Bactrim 1 pill twice a day and Keflex 1 pill 4 times a day of the antibiotics the abscess.
--- NOTE | 2018-09-02 14:46 | ED.RN ---
DISCHARGE INSTRUCTIONS GIVEN TO AND REVIEWED WITH PATIENT, PATIENT DENIES QUESTIONS OR CONCERNS AND VOICES UNDERSTANDING OF DISCHARGE INSTRUCTIONS. PT AMBULATES OUT OF ROOM WITHOUT DIFFICULTY.
== END 2018-09-02 14:47 | disposition home or self-care (01) ==
PROVIDERS: Emergency Provider Emergency Medicine; Family Provider Family Medicine; PCP Family Medicine
DX: L02.211 Cutaneous abscess of abdominal wall (principal); F20.9 Schizophrenia, unspecified; B19.20 Unspecified viral hepatitis C without hepatic coma; L03.311 Cellulitis of abdominal wall
CPT/HCPCS: 10061; 99283

== ENCOUNTER → 2018-10-12 | Outpatient (CLI) | payer MEDICARE, SELFPAY ==
[2018-10-12 07:51] LABS: Bacteria 0 SEEN /hpf (None Seen); Mucous, Urine 0 SEEN /hpf (<or=2+); Red Blood Cells-Urine 0 SEEN /hpf (0-5); Squamous Epithelial Cells - UA 0 SEEN /hpf (0-5); White Blood Cells 0 SEEN /hpf (0-5)
[2018-10-12 10:13] LABS: Absolute Neutrophil Count 4.8 X10^3/uL (2.0-7.7); Basophil# 0.03 X10^3/uL; Basophil% 0.4 % (0-1); Eosinophil# 0.18 X10^3/uL; Eosinophils% 2.5 % (0-5); Hematocrit 41.6 % (40-54); Hemoglobin 13.8 g/dl (13.0-16.5); Lymphocyte % 21.9 % (19-41); Mean Corp Hgb Conc 33.2 g/gl (32-36); Mean Corpuscular Hgb 29.4 pg (27.0-32.0); Mean Corpuscular Volume 88.5 fL (80-94); Mean Platelet Vol. 11.8 fl (6.2-12.0); Monocyte# 0.66 X10^3/uL; Monocyte% 9.1 % (0-10); Neutrophil % 65.8 % (47-70); Platelet Count 129 K/mm3 (150-450); RBC Distribution Width CV 13.7 % (11.6-14.6); RBC Distribution Width SD 44.3 fl (35.1-43.9); White Blood Count 7.3 K/mm3 (4.4-11.0)
[2018-10-12 10:14] LABS: POSITIVE COUNT NO; POSITIVE DIFFERENTIAL NO; POSITIVE MORPHOLOGY NO
[2018-10-12 10:15] LABS: Color, Urine Yellow (Yellow); Glucose, Dipstick Normal (Normal); Ketone-Dipstick Negative (Negative); Leukocyte Esterase-Dipstick Negative /ul (Negative); Nitrite-Dipstick Negative (Negative); Occult Blood-Urine Negative /ul (Negative); Protein-Dipstick Negative (Negative); Urine Bilirubin Dipstick Negative (Negative); Urine Clarity Clear (Clear); Urine Urobilinogen Normal (Normal)
[2018-10-12 10:27] LABS: Hemoglobin A1c 5.8 % (4.2-6.3)
[2018-10-12 10:35] LABS: ALB/GLOB Ratio 1.1 RATIO (0.9-2.4); AST(SGOT) 85 U/L (15-37); Alanine Aminotransfer ALT/SGPT 128 U/L (16-61); Albumin, Serum 3.7 g/dL (3.2-5.0); Alkaline Phosphatase 63 U/L (45-117); Anion Gap 6 (5-15); BUN 19 mg/dL (7-18); BUN/Creat Ratio 24.8 RATIO (10-20); Calcium,Total 8.8 mg/dL (8.5-10.1); Chloride 106 mmol/L (98-107); Cholesterol 209 mg/dL (200); Creatinine, Serum 0.77 mg/dL (0.70-1.30); EST Glomerular Filtration Rate 110 mL/min (>60); Est Glom Filt Rate - Afr Amer 134 mL/min (>60); Globulin 3.5 g/dL (2.2-4.2); Glucose 97 mg/dL (74-106); High Density Lipoprotein 58 mg/dL; Protein, Total 7.2 g/dL (6.4-8.2); Sodium Level 142 mmol/L (136-145); Triglycerides 52 mg/dL; Very Low Density Lipoprotein 10 mg/dL (5-40)
== END | disposition home or self-care (01) ==
PROVIDERS: Family Provider Family Medicine; PCP Family Medicine; Referring Provider Family Medicine; Visit Provider Family Medicine
DX: R73.02 Impaired glucose tolerance (oral) (principal); Z79.899 Other long term (current) drug therapy; B19.20 Unspecified viral hepatitis C without hepatic coma; E03.9 Hypothyroidism, unspecified; F17.210 Nicotine dependence, cigarettes, uncomplicated
CPT/HCPCS: 36415; 80053; 80061; 81001; 83036; 84443; 85025

== ENCOUNTER → 2019-05-08 15:33 | Outpatient (CLI) | payer MEDICARE, SELFPAY ==
[2019-05-08 18:03] LABS: Absolute Lymphocyte Count 1.37 X10^3/uL (0.83-4.51); Absolute Neutrophil Count 5.3 X10^3/uL (2.0-7.7); Basophil# 0.03 X10^3/uL; Basophil% 0.4 % (0-1); Eosinophil# 0.12 X10^3/uL; Eosinophils% 1.6 % (0-5); Hematocrit 42.6 % (40-54); Hemoglobin 13.6 g/dL (13.0-16.5); Lymphocyte # 1.37 X10^3/ul (4.0); Lymphocyte % 17.7 % (19-41); Mean Corp Hgb Conc 31.9 g/dL (32-36); Mean Corpuscular Hgb 28.2 pg (27.0-32.0); Mean Corpuscular Volume 88.2 fL (80-94); Mean Platelet Vol. 11.2 fl (6.2-12.0); Monocyte# 0.81 X10^3/uL; Monocyte% 10.5 % (0-10); NRBC Flagged by Analyzer 0 % (0-5); Neutrophil # 5.33 X10^3/uL (2.7-7.7); Neutrophil % 68.8 % (47-70); Platelet Count 228 K/mm3 (150-450); RBC Distribution Width CV 15.2 % (11.6-14.6); RBC Distribution Width SD 49.3 fl (35.1-43.9); Red Blood Count 4.83 M/mm3 (4.6-6.2); White Blood Count 7.7 K/mm3 (4.4-11.0)
[2019-05-08 18:59] LABS: ALB/GLOB Ratio 0.8 RATIO (0.9-2.4); AST(SGOT) 83 U/L (15-37); Alanine Aminotransfer ALT/SGPT 101 U/L (16-61); Albumin, Serum 3.4 g/dL (3.2-5.0); Alkaline Phosphatase 81 U/L (45-117); Anion Gap 5 (5-15); BUN 28 mg/dL (7-18); BUN/Creat Ratio 32.7 RATIO (10-20); Calcium,Total 9.1 mg/dL (8.5-10.1); Chloride 104 mmol/L (98-107); Creatinine, Serum 0.86 mg/dL (0.70-1.30); EST Glomerular Filtration Rate 97 mL/min (>60); Est Glom Filt Rate - Afr Amer 117 mL/min (>60); Globulin 4.2 g/dL (2.2-4.2); Glucose 68 mg/dL (74-106); Potassium 3.9 mmol/L (3.5-5.1); Protein, Total 7.6 g/dL (6.4-8.2); Sodium Level 139 mmol/L (136-145)
== END ==
PROVIDERS: Family Provider Family Medicine; PCP Family Medicine; Referring Provider Family Medicine; Visit Provider Family Medicine
DX: R73.02 Impaired glucose tolerance (oral) (principal); E03.9 Hypothyroidism, unspecified; B19.20 Unspecified viral hepatitis C without hepatic coma; F17.210 Nicotine dependence, cigarettes, uncomplicated
CPT/HCPCS: 80053; 83036; 84443; 85025

== ENCOUNTER → 2019-05-21 11:13 | Outpatient (CLI) | payer MEDICARE, SELFPAY ==
[2019-05-21 11:18] LABS: Bacteria 0 SEEN /hpf (None Seen); Squamous Epithelial Cells - UA 0 SEEN /hpf (0-5)
[2019-05-21 12:17] LABS: Color, Urine Amber (Yellow); Glucose, Dipstick Normal (Normal); Ketone-Dipstick 5 mg/dl (Negative); Leukocyte Esterase-Dipstick 25 /ul (Negative); Nitrite-Dipstick Positive (Negative); Occult Blood-Urine 25 /ul (Negative); Protein-Dipstick 30 mg/dl (Negative); Specific Gravity, Urine 1.015 (1.002-1.030); Urine Bilirubin Dipstick 6 mg/dL (Negative); Urine Clarity Clear (Clear); Urine Urobilinogen 12 mg/dl (Normal); Urine pH 6.5 (5.0 - 8.0)
[2019-05-21 12:27] LABS: Absolute Lymphocyte Count 0.94 X10^3/uL (0.83-4.51); Absolute Neutrophil Count 6.5 X10^3/uL (2.0-7.7); Basophil# 0.03 X10^3/uL; Basophil% 0.4 % (0-1); Eosinophil# 0.09 X10^3/uL; Eosinophils% 1.1 % (0-5); Hematocrit 42.1 % (40-54); Hemoglobin 13.8 g/dL (13.0-16.5); Lymphocyte # 0.94 X10^3/ul (4.0); Lymphocyte % 11.3 % (19-41); Mean Corp Hgb Conc 32.8 g/dL (32-36); Mean Corpuscular Hgb 28.1 pg (27.0-32.0); Mean Corpuscular Volume 85.7 fL (80-94); Monocyte# 0.74 X10^3/uL; Monocyte% 8.9 % (0-10); NRBC Flagged by Analyzer 0 % (0-5); Neutrophil # 6.48 X10^3/uL (2.7-7.7); Neutrophil % 77.6 % (47-70); Platelet Count 166 K/mm3 (150-450); RBC Distribution Width CV 17.2 % (11.6-14.6); RBC Distribution Width SD 53.1 fl (35.1-43.9); Red Blood Count 4.91 M/mm3 (4.6-6.2); White Blood Count 8.3 K/mm3 (4.4-11.0)
[2019-05-21 12:30] LABS: Mucous, Urine 1+ /hpf (<or=2+); Red Blood Cells-Urine 0-5 SEEN /hpf (0-5); White Blood Cells 0-5 SEEN /hpf (0-5)
[2019-05-21 12:49] LABS: Hemoglobin A1c 5.7 % (4.2-6.3)
[2019-05-21 12:58] LABS: ALB/GLOB Ratio 0.6 RATIO (0.9-2.4); AST(SGOT) 1828 U/L (15-37); Alanine Aminotransfer ALT/SGPT 3279 U/L (16-61); Albumin, Serum 2.6 g/dL (3.2-5.0); Alkaline Phosphatase 170 U/L (45-117); Anion Gap 3 (5-15); BUN 15 mg/dL (7-18); BUN/Creat Ratio 19.2 RATIO (10-20); Chloride 105 mmol/L (98-107); Creatinine, Serum 0.78 mg/dL (0.70-1.30); EST Glomerular Filtration Rate 108 mL/min (>60); Est Glom Filt Rate - Afr Amer 130 mL/min (>60); Globulin 4.1 g/dL (2.2-4.2); Glucose 88 mg/dL (74-106); Potassium 3.5 mmol/L (3.5-5.1); Protein, Total 6.7 g/dL (6.4-8.2); Sodium Level 137 mmol/L (136-145)
== END ==
PROVIDERS: PCP Family Medicine; Visit Provider Family Medicine
DX: E03.9 Hypothyroidism, unspecified (principal); F17.210 Nicotine dependence, cigarettes, uncomplicated; B19.20 Unspecified viral hepatitis C without hepatic coma; R73.02 Impaired glucose tolerance (oral); R17 Unspecified jaundice
CPT/HCPCS: 36415; 80053; 81001; 82248; 83036; 84443; 85025

== ENCOUNTER 2019-05-22 16:15 | Inpatient (IN) | payer MEDICARE, MEDICAID, SELFPAY ==
[2019-05-22 16:17] VITALS: BP 151/89; PULSE 81; RESP 17; TEMP 36.3; O2SAT 98; BMI 22.8
--- NOTE | 2019-05-22 17:41 | ED.VISSUMM ---
- ER Visit Summary Date of Service: 05/22/19 Chief Complaint: Abnormal labs History of Present Illness: The patient is a 59 M who presents with elevated liver function tests that were obtained as an outpatient by his primary care physician. Patient states he had lab work drawn yesterday which showed elevated liver function test. Patient admits to some increasing pain in his abdomen. Patient describes it as aching. Patient also admits to some right upper dental pain. Patient states nothing makes it better or worse. Patient admits to subjective fevers and chills. Patient admits to a cough. Patient denies any nausea or vomiting. Patient denies any dysuria or hematuria. Physical Examination: Vital signs are stable. Patient is afebrile. Patient is in no acute distress. Oral mucosa is pink and moist. Oropharynx is clear. Pupils are equal, round, and reactive to light bilaterally. Extraocular muscles are intact. There is scleral icterus noted. Neck is supple. Trachea is midline. There is no JVD. Heart was regular rate and rhythm. Lungs are clear and equal bilaterally. Abdomen is soft. Bowel sounds are normal. There is no tenderness. Cranial nerves II through XII are grossly intact. There are no focal motor or sensory deficits noted. Skin is warm and dry. There is jaundice noted. Test Results: CBC was normal. Comprehensive metabolic profile showed a mild hypokalemia 3.3. Total bilirubin was 11.4. Alk phos was 146. ALT was 2198, and AST was 834. INR was 1.9. PTT was 40.5. Urinalysis does not show any evidence of urinary tract infection. Urine bilirubin was 6 and urobilinogen was 8. Hepatitis profile was added and is pending. Emergency Department Course and Treatment: Case was discussed with the hospitalist. He recommended obtaining an acetaminophen level. This was done and was less than 2. Patient will be admitted to the hospital. Patient appeared to understand and was agreeable with the plan. All questions were answered. Disposition: Admit to hospital Impression: Hepatitis This note was generated with [employer] dictation software. It may contain incorrect words, spelling, and punctuation that were not noted in review of the chart prior to signing ED Disposition - Plan for ED Patient: Disposition: Acute Care [facility]
[2019-05-22 17:44] LABS: Mucous, Urine 0 SEEN /hpf (<or=2+); Red Blood Cells-Urine 0 SEEN /hpf (0-5); Squamous Epithelial Cells - UA 0 SEEN /hpf (0-5)
[2019-05-22 17:53] LABS: Absolute Lymphocyte Count 0.97 X10^3/uL (0.83-4.51); Absolute Neutrophil Count 6.3 X10^3/uL (2.0-7.7); Basophil# 0.02 X10^3/uL; Basophil% 0.2 % (0-1); Eosinophil# 0.08 X10^3/uL; Hematocrit 39.7 % (40-54); Hemoglobin 13.1 g/dL (13.0-16.5); Lymphocyte # 0.97 X10^3/ul (4.0); Mean Corpuscular Hgb 28.1 pg (27.0-32.0); Mean Corpuscular Volume 85.2 fL (80-94); Mean Platelet Vol. 12.4 fl (6.2-12.0); Monocyte# 0.65 X10^3/uL; Monocyte% 8.1 % (0-10); NRBC Flagged by Analyzer 0 % (0-5); Neutrophil % 78.2 % (47-70); Platelet Count 166 K/mm3 (150-450); RBC Distribution Width CV 17.5 % (11.6-14.6); RBC Distribution Width SD 53.9 fl (35.1-43.9); Red Blood Count 4.66 M/mm3 (4.6-6.2); White Blood Count 8.1 K/mm3 (4.4-11.0)
[2019-05-22 18:02] LABS: Color, Urine Amber (Yellow); Glucose, Dipstick Normal (Normal); Ketone-Dipstick 5 mg/dl (Negative); Leukocyte Esterase-Dipstick 25 /ul (Negative); Nitrite-Dipstick Negative (Negative); Occult Blood-Urine 25 /ul (Negative); Protein-Dipstick 30 mg/dl (Negative); Urine Clarity Clear (Clear); Urine Urobilinogen 8 mg/dl (Normal)
[2019-05-22 18:07] LABS: Urine Bilirubin Dipstick 6 mg/dL (Negative)
[2019-05-22 18:14] LABS: International Normalized Ratio 1.9; Prothrombin Time (Protime)PT. 21.9 SECONDS (11.7-14.9)
[2019-05-22 18:15] LABS: Partial Thromboplast Time 40.5 Seconds (24.1-36.2)
[2019-05-22 18:18] LABS: ALB/GLOB Ratio 0.6 RATIO (0.9-2.4); AST(SGOT) 834 U/L (15-37); Alanine Aminotransfer ALT/SGPT 2198 U/L (16-61); Albumin, Serum 2.4 g/dL (3.2-5.0); Alkaline Phosphatase 146 U/L (45-117); Anion Gap 3 (5-15); BUN 21 mg/dL (7-18); BUN/Creat Ratio 22.8 RATIO (10-20); Calcium,Total 8.2 mg/dL (8.5-10.1); Chloride 107 mmol/L (98-107); Creatinine, Serum 0.92 mg/dL (0.70-1.30); EST Glomerular Filtration Rate 89 mL/min (>60); Est Glom Filt Rate - Afr Amer 108 mL/min (>60); Globulin 4.2 g/dL (2.2-4.2); Glucose 93 mg/dL (74-106); Lipase 287 U/L (73-393); Potassium 3.3 mmol/L (3.5-5.1); Protein, Total 6.6 g/dL (6.4-8.2); Sodium Level 139 mmol/L (136-145)
[2019-05-22 18:25] LABS: White Blood Cells 0-5 SEEN /hpf (0-5)
[2019-05-22 18:28] LABS: Bacteria RARE /hpf (None Seen); Yeast-Urine RARE /hpf (None Seen)
[2019-05-22 20:51] VITALS: BP 147/90; PULSE 78; RESP 18; O2SAT 98
--- NOTE | 2019-05-22 21:02 | PCM.HP.STD ---
Problem List (1) Elevated liver enzymes Status: Acute (2) Hypothyroidism Status: Chronic (3) Schizophrenia Status: Chronic (4) GERD (gastroesophageal reflux disease) Status: Chronic History of Present Illness Date of Admission: 05/22/19 Chief Complaint: elevated liver enzymes The patient is a 59 year old M with a significant history of hypothyroidism and schizophrenia who presented to emergency department with elevated liver enzymes on outpatient labs. Patient complains of abdominal pain. Further, patient complains of teeth pain and toes pain which appears to be chronic. Past Medical History Past Medical History (Chronic Problems): Chronic Problems Hypothyroidism (Chronic) GERD (gastroesophageal reflux disease) (Chronic) Schizophrenia (Chronic) Allergies venom-honey bee [bee venom (honey bee)] Allergy (Verified 05/22/19 16:15) Swelling Home Medications: Ambulatory Orders Medication Instructions Recorded Aripiprazole 30 mg PO DAILY 05/22/19 Levothyroxine Sodium 175 mcg PO DAILY 05/22/19 Surgical History: no surgical history Psychiatric History: Schizophrenia Smoking Status: Current every day smoker Alcohol: None - *Family History Maternal History Items: Diabetes, Hypertension Paternal History Items: Cancer Sibling History Items: COPD, Hypertension Review of Systems Constitutional: Denies: Chills, Fever, Weight Change HEENT: Denies: Head Aches, Sinus Congestion, Sinus Drainage Cardiovascular: Denies: Chest Pain, Palpitations Respiratory: Denies: Cough, Shortness of breath at rest, Sputum production Gastrointestinal: Reports: Abdominal Pain. Denies: Nausea, Vomiting Genitourinary: Denies: Dysuria Musculoskeletal: Reports: Joint Pain - toes, Joint Tenderness - toes Skin: Denies: Rash, Wounds Neurological: Denies: Numbness, Tingling, Focal weakness Psychiatric: Denies: Anxiety, Depression, Homicidal Ideations, Suicidal Ideations Hematologic/ Lymphatic: Denies: Easy Bruising, Easy Bleeding VTE Information - Inpt Only VTE Present on Admission: No VTE Mechan Device Prophylaxis: None VTE Pharm Prophylaxis ordered?: Yes Patient Problems: Active and Suspected Problems Elevated liver enzymes (Acute) - Physical Exam Vitals/I&O's: Vital Signs Temp Pulse Resp BP Pulse Ox 97.4 F L 78 18 147/90 H 98 05/22/19 16:17 05/22/19 20:51 05/22/19 20:51 05/22/19 20:51 05/22/19 20:51 Oxygen Delivery Method Room Air Weight: 60.5 kg Body Mass Index (BMI) 22.8 General: Alert, Oriented x3, Cooperative, - HEENT: Atraumatic, PERRLA, EOMI, Normocephalic, - - Scleral icterus Oral: - - poor dentition Neck: Supple, No JVD, Negative Carotid Bruits Lungs: Clear to auscultation, Normal air movement Cardiovascular: Regular rate, Normal S1, Normal S2, No murmurs Abdomen: Bowel Sounds Present, Soft, Non Tender Extremities: No edema, Capillary Refill Less than 3 Seconds Skin: No rashes, No breakdown, - - Jaundiced skin Musculoskeletal: No Tenderness to Palpation of Joints or Extremities Neurological: Cranial nerves II-XII grossly intact, - - Sensitivity of toes. Psych/Mental Status: Flat Affect, - Laboratory Results 05/22/19 17:32: Urine Color Ann, Urine Clarity Clear, Urine pH 6.0, Ur Specific [place] 1.020, Urine Protein 30 H, Urine Glucose (UA) Normal, Urine Ketones 5 H, Urine Occult Blood 25 H, Urine Nitrite Negative, Urine Bilirubin 6 H, Urine Urobilinogen 8 H, Ur Leukocyte Esterase 25 H, Urine RBC 0 SEEN, Urine WBC 0-5 SEEN, Ur Squamous Epith Cells 0 SEEN, Urine Bacteria RARE, Urine Mucus 0 SEEN, Urine Yeast RARE 05/22/19 17:35: WBC 8.1, RBC 4.66, Hgb 13.1, Hct 39.7 L, MCV 85.2, MCH 28.1, MCHC 33.0, RDW Std Deviation 53.9 H, RDW Coeff of [place] 17.5 H, Plt Count 166, MPV 12.4 H, Immature Gran % (Auto) 0.500, Neut % (Auto) 78.2 H, Lymph % (Auto) 12.0 L, [place] % (Auto) 8.1, Eos % (Auto) 1.0, Baso % (Auto) 0.2, Absolute Neuts (auto) 6.3, Absolute Lymphs (auto) 0.97, Nucleated RBC % 0 05/22/19 17:35: PT 21.9 H, INR 1.9, APTT 40.5 H 05/22/19 17:35: Sodium 139, Potassium 3.3 L, Chloride 107, Carbon Dioxide 29.0, Anion Gap 3 L, BUN 21 H, Creatinine 0.92, Estim Creat Clear Calc 71.50, Est GFR (MDRD) Af Amer 108, Est GFR (MDRD) Non-Af 89, BUN/Creatinine Ratio 22.8 H, Glucose 93, Calcium 8.2 L, Total Bilirubin 11.40 H, AST 834 H, ALT 2198 H, Alkaline Phosphatase 146 H, Total Protein 6.6, Albumin 2.4 L, Globulin 4.2, Albumin/Globulin Ratio 0.6 L, Lipase 287 05/22/19 17:35: Ammonia 30.0 05/22/19 20:40: Hepatitis A IgM Ab Pending, Hep Bs Antigen Pending, Hep B Core IgM Ab Pending, Hepatitis C Ab (EIA) Pending Assessment/Plan All Active Problems Elevated liver enzymes (Acute) The patient is a 59 year old M with a significant history of hypothyroidism and schizophrenia now with elevated liver enzymes; sclera icterus and jaundice Elevated liver enzymes; sclera icterus and jaundice Liver enzymes were elevated at the emergency department. Albumin is low at 2.4. INR was 1.9. Hepatitis panel was ordered at the ED. Discussed with emergency department doctor to get Tylenol level. Supportive treatment with IV fluids. Trend CMP. Trend INR. Get ultrasound of right upper quadrant. N.p.o. for ultrasound. Hypothyroidism Normal saline with potassium initiated Check magnesium level. Schizophrenia Abilify continued Hypothyroidism Synthroid continued DVT Prophylaxis Subcutaneous Lovenox Code Visit Inpatient E&M: 96539 Init Hosp L3
[2019-05-22 21:50] VITALS: BP 145/88; PULSE 65; RESP 18; TEMP 36.3; O2SAT 99
[2019-05-22 21:52] VITALS: BMI 19.8
[2019-05-22 21:55] VITALS: BMI 19.8
[2019-05-22 22:05] VITALS: O2SAT 98
[2019-05-22 22:16] LABS: Acetaminophen (Tylenol) Level < 2.0 ug/mL (10.0-30.0)
[2019-05-22] MEDS: Potassium Chloride 40 MEQ in 0.9% Normal Saline 1,000 ML 75 MEQ IV (22:17)
[2019-05-22] MEDS: oxyCODONE 5 MG Tablet PO (22:17)
[2019-05-23 03:50] VITALS: BP 131/79; PULSE 71; RESP 18; TEMP 36.9; O2SAT 96
[2019-05-23] MEDS: oxyCODONE 5 MG Tablet PO ×2 (05:12→14:42)
[2019-05-23] MEDS: Levothyroxine 175 MCG Tablet PO (05:12)
--- NOTE | 2019-05-23 05:55 | US_ITS ---
STUDY: ABDOMINAL ULTRASOUND - RIGHT UPPER QUADRANT REASON FOR VISIT: Male, 59 years old ELEVATED LFTS HX HEP C TECHNIQUE: Ultrasound evaluation of the right upper quadrant was performed with real-time and static mendez-scale imaging. TECHNICAL QUALITY: Adequate. COMPARISON: Comparison is made with prior ultrasound dated December 22, 2008. FINDINGS: Liver: The liver measures 15.7 cm. There is increased echogenicity consistent with mild degree of fatty infiltration. The bile ducts are within normal limits. There is hepatic color flow. The direction of portal flow is hepatopetal. There is no demonstrated mass lesion. Gallbladder: Normal distended gallbladder. The gallbladder wall measures 3.5 mm. There is a positive sonographic Roland''s sign. There is no pericholecystic fluid. There are no gallstones. Common Bile Duct (C.B.D.): The common bile duct measures 3.3 mm. Pancreas: Normal size of the head, body and tail of the pancreas. There is normal echogenicity of the pancreas. There is no demonstrated pancreatic mass or cyst. Right Kidney: Normal size of the right kidney. The right kidney measures 11.1 cm x 5.3 cm x 5.5 cm. Normal renal cortex. The right cortex measures 2.1 cm. There is no demonstrated renal mass or cyst. There is no right hydronephrosis. US/Abdomen Limited IMPRESSION: Mild degree of fatty infiltration of the liver. Mild degree of gallbladder wall thickening. Electronically Signed: Giovanny Shoemaker, at 8:25 EST , Service support ,
[2019-05-23 06:11] LABS: Absolute Lymphocyte Count 1.11 X10^3/uL (0.83-4.51); Basophil# 0.01 X10^3/uL; Basophil% 0.1 % (0-1); Eosinophil# 0.13 X10^3/uL; Eosinophils% 1.9 % (0-5); Hematocrit 37.4 % (40-54); Hemoglobin 12.3 g/dL (13.0-16.5); Lymphocyte # 1.11 X10^3/ul (4.0); Mean Corp Hgb Conc 32.9 g/dL (32-36); Mean Platelet Vol. 12.8 fl (6.2-12.0); Monocyte# 0.66 X10^3/uL; Monocyte% 9.5 % (0-10); NRBC Flagged by Analyzer 0 % (0-5); Neutrophil # 4.95 X10^3/uL (2.7-7.7); Neutrophil % 71.5 % (47-70); Platelet Count 141 K/mm3 (150-450); RBC Distribution Width CV 17.7 % (11.6-14.6); RBC Distribution Width SD 53.8 fl (35.1-43.9); White Blood Count 6.9 K/mm3 (4.4-11.0)
[2019-05-23 06:13] LABS: International Normalized Ratio 1.8; Prothrombin Time (Protime)PT. 20.7 SECONDS (11.7-14.9)
[2019-05-23 06:48] LABS: ALB/GLOB Ratio 0.6 RATIO (0.9-2.4); AST(SGOT) 534 U/L (15-37); Alanine Aminotransfer ALT/SGPT 1652 U/L (16-61); Albumin, Serum 2.1 g/dL (3.2-5.0); Alkaline Phosphatase 127 U/L (45-117); Anion Gap 4 (5-15); BUN 16 mg/dL (7-18); BUN/Creat Ratio 25.8 RATIO (10-20); Calcium,Total 7.3 mg/dL (8.5-10.1); Chloride 110 mmol/L (98-107); Creatinine, Serum 0.62 mg/dL (0.70-1.30); EST Glomerular Filtration Rate 141 mL/min (>60); Est Glom Filt Rate - Afr Amer 170 mL/min (>60); Estimated Creatinine Clearance 105.73 ml/min; Globulin 3.7 g/dL (2.2-4.2); Glucose 86 mg/dL (74-106); Magnesium 1.9 mg/dL (1.6-2.6); Potassium 3.9 mmol/L (3.5-5.1); Protein, Total 5.8 g/dL (6.4-8.2); Sodium Level 138 mmol/L (136-145)
[2019-05-23 08:03] LABS: Free T3 1.4 pg/mL (2.18-3.98); T4 Free Direct 1.22 ng/dL (0.76-1.46)
[2019-05-23 09:18] VITALS: BP 155/88; PULSE 69; RESP 16; TEMP 36.3; O2SAT 99
[2019-05-23] MEDS: ARIPiprazole 10 MG Tablet 30 MG PO (09:20)
[2019-05-23] MEDS: Enoxaparin 40 MG/0.4 ML Syringe SC (09:21)
--- NOTE | 2019-05-23 10:29 | CASEMGMT ---
NOE LUNA assessment: Face to Face with patient for initial transition planning/care coordination assessment. NOE LUNA introduced self and role at [facility], pt voices understanding and consents to assessment at this time. Pt is sitting up in bed in no distress at this time. Pt with jaundice skin at this time. Pt is A/Ox4 at this time and answers questions appropriately but is hard to understand as he mumbles while speaking. Care providers, pharmacy, and demographics verified at this time. Presentation: [facility], [facility], for abnormal liver fxn tests and pt jaundiced. Admitting dx: Elevated liver enzymes PCP: Damaris Specialists: Pt states currently has no specialists. Preferred Pharmacy: [facility] Insurance: [employer] Prescription Benefit: [employer] Living Will/HPOA: Pt states does not have LW/HPOA and declines AD info at this time. LNOK: Марина Becerra, mother; Jahaira Becerra, sister Living Arrangements: Pt states lives a friend in a 2 story home and states no concerns at home at this time. Pt states is normally independent with ADL's. Transportation: Pt states walks where he needs to go and states no transportation concerns at this time. DME/HHC: Pt states no current DME or need for any at this time. Pt states no hx of HHC or SNF in the past. Pt states no concerns with going home at time of discharge. Pt states is disabled. Pt states smokes about 5 cigarettes daily and declines ETOH use. Pt states hasn't done iv drugs 'in a long time' but won't clarify what that means. Pt states no further concerns/needs at this time. CM to follow for any further discharge planning/needs. Advised pt to ask for CM if any further questions/concerns/needs arise, voices understanding. Pt Goal: Home Plan[place]
[2019-05-23 11:08] LABS: CPK Total, Creatine Kinase 116 U/L (39-308)
[2019-05-23] MEDS: Potassium Chloride 40 MEQ in 0.9% Normal Saline 1,000 ML 75 MEQ IV (11:45)
--- NOTE | 2019-05-23 13:10 | CASEMGMT ---
Addendum entered by Jahaira Valladares 05/23/19 13:14: SW did get a [facility] This was placed in the front of the chart. Jahaira SEVILLA Original Note: Patient has a legal guardian through [facility]. Her name is Divya Soria. To reach Divya you must call [facility] at [phone]. This is per Irma at [facility]. Jahaira SEVILLA
--- NOTE | 2019-05-23 13:26 | PCM.PN.HOSP ---
<Abner Anderson - Last Filed: 05/23/19 13:26> Patient Problems: Active and Suspected Problems Elevated liver enzymes (Acute) Subjective: Abnormal LFTs Objective: Patient denies abdominal pain, nausea, vomiting, diarrhea. Denies recent illness or infection. Patient states that he came in because his labs were abnormal. He denies a history of liver disease. He denies drinking alcohol. He does admit to using IV cocaine in the past he denies current use of IV drugs. Denies a history of hepatitis. No fever chills. No headache, dizziness, lightheadedness. Vitals/I&O's: Vital Signs Temp Pulse Resp BP Pulse Ox 97.4 F L 69 16 155/88 H 99 05/23/19 09:18 05/23/19 09:18 05/23/19 09:18 05/23/19 09:18 05/23/19 09:18 Oxygen Delivery Method Room Air Weight: 130 lb 1.164 oz Body Mass Index (BMI) 19.8 Intake and Output for Last 24 Hours 05/21/19 05/22/19 05/23/19 23:59 23:59 23:59 Intake Total 606.25 / 606.25 1360.75 / 1360.75 Balance 606.25 / 606.25 1360.75 / 1360.75 General: Alert, Oriented x3, Cooperative HEENT: Atraumatic, PERRLA, EOMI, Normocephalic Neck: Supple, No JVD, Negative Carotid Bruits Lungs: Clear to auscultation, Normal air movement Cardiovascular: Regular rate, No murmurs Abdomen: Bowel Sounds Present, Soft, Non Tender Extremities: No edema, Capillary Refill Less than 3 Seconds Skin: No rashes, No breakdown Musculoskeletal: No Tenderness to Palpation of Joints or Extremities Neurological: Cranial nerves II-XII grossly intact Psych/Mental Status: Flat Affect, Alert and oriented to time, place, person, mood and affect Laboratory Results 05/22/19 17:32: Urine Color Ann, Urine Clarity Clear, Urine pH 6.0, Ur Specific [place] 1.020, Urine Protein 30 H, Urine Glucose (UA) Normal, Urine Ketones 5 H, Urine Occult Blood 25 H, Urine Nitrite Negative, Urine Bilirubin 6 H, Urine Urobilinogen 8 H, Ur Leukocyte Esterase 25 H, Urine RBC 0 SEEN, Urine WBC 0-5 SEEN, Ur Squamous Epith Cells 0 SEEN, Urine Bacteria RARE, Urine Mucus 0 SEEN, Urine Yeast RARE 05/22/19 17:35: WBC 8.1, RBC 4.66, Hgb 13.1, Hct 39.7 L, MCV 85.2, MCH 28.1, MCHC 33.0, RDW Std Deviation 53.9 H, RDW Coeff of Addison 17.5 H, Plt Count 166, MPV 12.4 H, Immature Gran % (Auto) 0.500, Neut % (Auto) 78.2 H, Lymph % (Auto) 12.0 L, [place] % (Auto) 8.1, Eos % (Auto) 1.0, Baso % (Auto) 0.2, Absolute Neuts (auto) 6.3, Absolute Lymphs (auto) 0.97, Nucleated RBC % 0 05/22/19 17:35: PT 21.9 H, INR 1.9, APTT 40.5 H 05/22/19 17:35: Sodium 139, Potassium 3.3 L, Chloride 107, Carbon Dioxide 29.0, Anion Gap 3 L, BUN 21 H, Creatinine 0.92, Estim Creat Clear Calc 71.50, Est GFR (MDRD) Af Amer 108, Est GFR (MDRD) Non-Af 89, BUN/Creatinine Ratio 22.8 H, Glucose 93, Calcium 8.2 L, Total Bilirubin 11.40 H, AST 834 H, ALT 2198 H, Alkaline Phosphatase 146 H, Total Protein 6.6, Albumin 2.4 L, Globulin 4.2, Albumin/Globulin Ratio 0.6 L, Lipase 287 05/22/19 17:35: Ammonia 30.0 05/22/19 20:40: Hepatitis A IgM Ab Pending, Hep Bs Antigen Pending, Hep B Core IgM Ab Pending, Hepatitis C Ab (EIA) Pending 05/22/19 21:10: Acetaminophen < 2.0 L 05/23/19 05:34: WBC 6.9, RBC 4.40 L, Hgb 12.3 L, Hct 37.4 L, MCV 85.0, MCH 28.0, MCHC 32.9, RDW Std Deviation 53.8 H, RDW Coeff of [place]ison 17.7 H, Plt Count 141 L, MPV 12.8 H, Immature Gran % (Auto) 1.000 H, Neut % (Auto) 71.5 H, Lymph % (Auto) 16.0 L, [place] % (Auto) 9.5, Eos % (Auto) 1.9, Baso % (Auto) 0.1, Absolute Neuts (auto) 5.0, Absolute Lymphs (auto) 1.11, Nucleated RBC % 0 05/23/19 05:34: PT 20.7 H, INR 1.8 05/23/19 05:34: Sodium 138, Potassium 3.9, Chloride 110 H, Carbon Dioxide 24.0, Anion Gap 4 L, BUN 16, Creatinine 0.62 L, Estim Creat Clear Calc 105.73, Est GFR (MDRD) Af Amer 170, Est GFR (MDRD) Non-Af 141, BUN/Creatinine Ratio 25.8 H, Glucose 86, Calcium 7.3 L, Magnesium 1.9, Total Bilirubin 9.90 H, AST 534 H, ALT 1652 H, Alkaline Phosphatase 127 H, Total Protein 5.8 L, Albumin 2.1 L, Globulin 3.7, Albumin/Globulin Ratio 0.6 L 05/23/19 05:34: Free T4 1.22, Free T3 pg/dL 1.4 L 05/23/19 05:34: TSH 17.20 H 05/23/19 05:34: Total Creatine Kinase 116 05/23/19 08:03: CMV IgM Ab Pending, EBV Capsid Ag IgG Ab Pending, EBV Capsid Ag IgM Ab Pending, EBV Early Antigen IgG Pending, EBV Nuclear Ag IgG Ab Pending, EBV Antibody Interp Pending Current Medications Aripiprazole (Abilify) 30 mg PO DAILY [facility] Last Admin: 05/23/19 09:20 Dose: 30 mg Documented by: Enoxaparin Sodium (Lovenox) 40 mg SC DAILY [facility] Last Admin: 05/23/19 09:21 Dose: 40 mg Documented by: Glucagon () 1 mg IM .X1 PRN PRN Reason: Hypoglycemia Potassium Chloride 40 meq/ (Sodium Chloride) 1,020 mls @ 75 mls/hr IV .[id number] [facility] Stop: 05/24/19 00:28 Last Admin: 05/23/19 11:45 Dose: 75 mls/hr Documented by: Dextrose (Dextrose 10%-Water) 250 mls @ 999 mls/hr IV .Q16M PRN; Protocol PRN Reason: HYPOGLYCEMIA Sodium Chloride () 250 mls @ 15 mls/hr IV .[id number] PRN PRN Reason: Saline Flush Sodium Chloride () 250 mls @ 15 mls/hr IV .[id number] PRN PRN Reason: Additional IVPB Infusion Levothyroxine Sodium (Synthroid) 175 mcg PO DAILY@0600 [facility] Last Admin: 05/23/19 05:12 Dose: 175 mcg Documented by: Nutritional Formula (Lactose Free) (Ensure Enlive) 120 ml PO 4X/DAY [facility] Last Admin: 05/23/19 09:26 Dose: 120 ml Documented by: Ondansetron HCl (Zofran) 4 mg IV Q8H PRN PRN PRN Reason: NAUSEA/VOMITING Oxycodone HCl (Oxyir) 5 mg PO Q6H PRN PRN PRN Reason: Pain Score 6-10/10 Last Admin: 05/23/19 05:12 Dose: 5 mg Documented by: Senna/Docusate Sodium (Senokot-S, Kenzie-Colace) 2 tablet PO BID PRN PRN PRN Reason: Constipation Sodium Chloride () 10 - 40 ml IV UD PRN PRN Reason: SALINE FLUSH Medical Necessity - Tobacco Use Smoking Status: Current every day smoker Tobacco Use: Cigarettes Assessment/Plan All Active Problems Elevated liver enzymes (Acute) 1. Abnormal LFTs - acetaminophen level negative, INR 1.9, improving on IV fluids, still jaundiced, ammonia 30. Hepatitis panel pending. + hx IV drug use. Ultrasound of the abdomen shows mild fatty liver infiltration, mild gallbladder wall thickening. N/V panel pending. CPK normal. 2. Schizophrenia-hold Abilify with acute liver failure 3. Hypothyroidism - TSH high, T4 normal, T3 low 4. Hypokalemia - resolved, change fluids to NS. DVT ppx: lovenox, recheck platelets in the AM - trending down. DC planning: referral to psych as o/p with regards to appropriate antipsychotics. This patient was seen by Abner Anderson PA-C under the supervision of Dr. Amador. <Herberth Amador - Last Filed: 05/23/19 13:38> Reason for Visit: hepatitis Subjective: No abdominal pain. Tolerating PO. Vitals/I&O's: Vital Signs Temp Pulse Resp BP Pulse Ox 36.3 C L 69 16 155/88 H 99 05/23/19 09:18 05/23/19 09:18 05/23/19 09:18 05/23/19 09:18 05/23/19 09:18 Oxygen Delivery Method Room Air Weight: 59 kg Body Mass Index (BMI) 19.8 Intake and Output for Last 24 Hours 05/21/19 05/22/19 05/23/19 23:59 23:59 23:59 Intake Total 606.25 / 606.25 1360.75 / 1360.75 Balance 606.25 / 606.25 1360.75 / 1360.75 General: Alert, Cooperative HEENT: Atraumatic, Normocephalic, - - icterus Lungs: Clear to auscultation, Normal air movement, No rhonchi, No wheeze Cardiovascular: Regular rate, Regular Rhythm, Normal S1, Normal S2, No murmurs Abdomen: Bowel Sounds Present, Soft, Non Tender, Non-Distended Extremities: No edema, No Calf Tenderness Skin: - - jaundice Laboratory Results 05/22/19 17:32: Urine Color Ann, Urine Clarity Clear, Urine pH 6.0, Ur Specific [place] 1.020, Urine Protein 30 H, Urine Glucose (UA) Normal, Urine Ketones 5 H, Urine Occult Blood 25 H, Urine Nitrite Negative, Urine Bilirubin 6 H, Urine Urobilinogen 8 H, Ur Leukocyte Esterase 25 H, Urine RBC 0 SEEN, Urine WBC 0-5 SEEN, Ur Squamous Epith Cells 0 SEEN, Urine Bacteria RARE, Urine Mucus 0 SEEN, Urine Yeast RARE 05/22/19 17:35: WBC 8.1, RBC 4.66, Hgb 13.1, Hct 39.7 L, MCV 85.2, MCH 28.1, MCHC 33.0, RDW Std Deviation 53.9 H, RDW Coeff of [place]ison 17.5 H, Plt Count 166, MPV 12.4 H, Immature Gran % (Auto) 0.500, Neut % (Auto) 78.2 H, Lymph % (Auto) 12.0 L, [place] % (Auto) 8.1, Eos % (Auto) 1.0, Baso % (Auto) 0.2, Absolute Neuts (auto) 6.3, Absolute Lymphs (auto) 0.97, Nucleated RBC % 0 05/22/19 17:35: PT 21.9 H, INR 1.9, APTT 40.5 H 05/22/19 17:35: Sodium 139, Potassium 3.3 L, Chloride 107, Carbon Dioxide 29.0, Anion Gap 3 L, BUN 21 H, Creatinine 0.92, Estim Creat Clear Calc 71.50, Est GFR (MDRD) Af Amer 108, Est GFR (MDRD) Non-Af 89, BUN/Creatinine Ratio 22.8 H, Glucose 93, Calcium 8.2 L, Total Bilirubin 11.40 H, AST 834 H, ALT 2198 H, Alkaline Phosphatase 146 H, Total Protein 6.6, Albumin 2.4 L, Globulin 4.2, Albumin/Globulin Ratio 0.6 L, Lipase 287 05/22/19 17:35: Ammonia 30.0 05/22/19 20:40: Hepatitis A IgM Ab Pending, Hep Bs Antigen Pending, Hep B Core IgM Ab Pending, Hepatitis C Ab (EIA) Pending 05/22/19 21:10: Acetaminophen < 2.0 L 05/23/19 05:34: WBC 6.9, RBC 4.40 L, Hgb 12.3 L, Hct 37.4 L, MCV 85.0, MCH 28.0, MCHC 32.9, RDW Std Deviation 53.8 H, RDW Coeff of [place]ison 17.7 H, Plt Count 141 L, MPV 12.8 H, Immature Gran % (Auto) 1.000 H, Neut % (Auto) 71.5 H, Lymph % (Auto) 16.0 L, [place] % (Auto) 9.5, Eos % (Auto) 1.9, Baso % (Auto) 0.1, Absolute Neuts (auto) 5.0, Absolute Lymphs (auto) 1.11, Nucleated RBC % 0 05/23/19 05:34: PT 20.7 H, INR 1.8 05/23/19 05:34: Sodium 138, Potassium 3.9, Chloride 110 H, Carbon Dioxide 24.0, Anion Gap 4 L, BUN 16, Creatinine 0.62 L, Estim Creat Clear Calc 105.73, Est GFR (MDRD) Af Amer 170, Est GFR (MDRD) Non-Af 141, BUN/Creatinine Ratio 25.8 H, Glucose 86, Calcium 7.3 L, Magnesium 1.9, Total Bilirubin 9.90 H, AST 534 H, ALT 1652 H, Alkaline Phosphatase 127 H, Total Protein 5.8 L, Albumin 2.1 L, Globulin 3.7, Albumin/Globulin Ratio 0.6 L 05/23/19 05:34: Free T4 1.22, Free T3 pg/dL 1.4 L 05/23/19 05:34: TSH 17.20 H 05/23/19 05:34: Total Creatine Kinase 116 05/23/19 08:03: CMV IgM Ab Pending, EBV Capsid Ag IgG Ab Pending, EBV Capsid Ag IgM Ab Pending, EBV Early Antigen IgG Pending, EBV Nuclear Ag IgG Ab Pending, EBV Antibody Interp Pending Current Medications Enoxaparin Sodium (Lovenox) 40 mg SC DAILY [facility] Last Admin: 05/23/19 09:21 Dose: 40 mg Documented by: Glucagon () 1 mg IM .X1 PRN PRN Reason: Hypoglycemia Dextrose (Dextrose 10%-Water) 250 mls @ 999 mls/hr IV .Q16M PRN; Protocol PRN Reason: HYPOGLYCEMIA Sodium Chloride () 250 mls @ 15 mls/hr IV .[id number] PRN PRN Reason: Saline Flush Sodium Chloride () 250 mls @ 15 mls/hr IV .[id number] PRN PRN Reason: Additional IVPB Infusion Sodium Chloride () 1,000 mls @ 100 mls/hr IV .Q10H [facility] Levothyroxine Sodium (Synthroid) 175 mcg PO DAILY@0600 [facility] Last Admin: 05/23/19 05:12 Dose: 175 mcg Documented by: Nutritional Formula (Lactose Free) (Ensure Enlive) 120 ml PO 4X/DAY [facility] Last Admin: 05/23/19 09:26 Dose: 120 ml Documented by: Ondansetron HCl (Zofran) 4 mg IV Q8H PRN PRN PRN Reason: NAUSEA/VOMITING Oxycodone HCl (Oxyir) 5 mg PO Q6H PRN PRN PRN Reason: Pain Score 6-10/10 Last Admin: 05/23/19 05:12 Dose: 5 mg Documented by: Senna/Docusate Sodium (Senokot-S, Kenzie-Colace) 2 tablet PO BID PRN PRN PRN Reason: Constipation Sodium Chloride () 10 - 40 ml IV UD PRN PRN Reason: SALINE FLUSH Assessment/Plan Patient seen and examined independently. Data reviewed. I agree with the above note by the physician autopsy assistant. 1. acute hepatitis appears to be improving. unclear etiology. suspect viral. if worsening, consider TF to tertiary facility supportive mgmt for now.
[2019-05-23] MEDS: 0.9% Normal Saline 1,000 ML 100 ML IV ×2 (14:11→23:57)
[2019-05-23 14:40] VITALS: BP 141/85; PULSE 64; RESP 16; TEMP 36.4; O2SAT 98
[2019-05-23] MEDS: Ondansetron 4 MG/2 ML Vial IV (16:21)
[2019-05-23 17:47] VITALS: BP 139/83; PULSE 77; RESP 16; TEMP 36.9; O2SAT 99
[2019-05-23 22:10] VITALS: BP 134/81; PULSE 65; RESP 14; TEMP 36.6; O2SAT 97
[2019-05-24 04:06] LABS: HEPATITIS B SURFACE AG Negative (Negative); Hepatitis B Core AB IgM Negative (Negative)
[2019-05-24 04:10] VITALS: BP 145/73; PULSE 67; RESP 14; TEMP 36.9; O2SAT 98
[2019-05-24 06:19] LABS: ALB/GLOB Ratio 0.5 RATIO (0.9-2.4); AST(SGOT) 286 U/L (15-37); Alanine Aminotransfer ALT/SGPT 1175 U/L (16-61); Albumin, Serum 1.9 g/dL (3.2-5.0); Alkaline Phosphatase 137 U/L (45-117); Anion Gap 6 (5-15); BUN 10 mg/dL (7-18); BUN/Creat Ratio 20.2 RATIO (10-20); Calcium,Total 7.3 mg/dL (8.5-10.1); Chloride 105 mmol/L (98-107); EST Glomerular Filtration Rate 182 mL/min (>60); Est Glom Filt Rate - Afr Amer 221 mL/min (>60); Estimated Creatinine Clearance 131.11 ml/min; Globulin 3.7 g/dL (2.2-4.2); Glucose 90 mg/dL (74-106); Potassium 3.5 mmol/L (3.5-5.1); Protein, Total 5.6 g/dL (6.4-8.2); Sodium Level 134 mmol/L (136-145)
[2019-05-24] MEDS: oxyCODONE 5 MG Tablet PO (06:59)
[2019-05-24 07:02] VITALS: O2SAT 100
[2019-05-24 09:25] LABS: Hep C Antibodies >11.0 s/co ratio (0.0-0.9)
[2019-05-24 09:27] LABS: Hepatitis A IgM Antibody Positive (Negative)
[2019-05-24] MEDS: 0.9% Normal Saline 1,000 ML 100 ML IV (09:55)
[2019-05-24] MEDS: ARIPiprazole 10 MG Tablet 30 MG PO (09:57)
--- NOTE | 2019-05-24 10:04 | CASEMGMT ---
SCOTT called patient's guardian, Divya at [facility]. SCOTT was told there is no direct extension to her, just a voice mail. SW left her a voice mail letting her know patient is in the hospital and SW would like a return call. Jahaira NAILS MSW
[2019-05-24 10:05] VITALS: BP 121/72; PULSE 60; RESP 18; TEMP 36.4; O2SAT 99
--- NOTE | 2019-05-24 10:38 | DCINST_ITS ---
- Discharge Diagnoses Current Active Problems: Current Active and Chronic Problems Elevated liver enzymes (Acute) You will use the following diet at home:: No restrictions Your food should be the consistency of: Regular Your liquids should be the consistency of: Regular/Thin Discharge Activity: Return to Normal Activity Allergies/Adverse Reactions: Allergies venom-honey bee [bee venom (honey bee)] Allergy (Verified 05/22/19 16:15) Swelling Medications to take at Discharge Aripiprazole 30 mg PO DAILY 05/22/19 Levothyroxine Sodium 175 mcg PO DAILY 05/22/19 Primary Care Physician: Robin Ocampo MD [Primary Care Provider] - Please follow up with your Primary Care Physician in: 1-2 weeks Test Results: Test results from this visit will be discussed in further detail at your follow- up appointment, if applicable. Please Follow Up With: Jarett Casillas MD When: 3-4 weeks Proposed Discharge Date: 05/24/19
[2019-05-24 11:29] VITALS: BP 121/72; PULSE 60; RESP 18; TEMP 36.4; O2SAT 99
--- NOTE | 2019-05-24 12:10 | PHA.DC.MR ---
Pharmacy Service has performed discharge medication reconciliation for this patient. No new medications at time of discharge review. Medications reviewed are previously reported home medications. The patient's discharge medication list was reviewed for discrepancies and discrepancies were resolved. Home Medications Aripiprazole 30 mg PO DAILY 05/22/19 Levothyroxine Sodium 175 mcg PO DAILY 05/22/19
--- NOTE | 2019-05-24 12:47 | DS.PCM_ITS ---
<Abner Anderson - Last Filed: 05/24/19 12:47> Discharge Date and Diagnosis - Problem List Patient Problems: Active and Suspected Problems Elevated liver enzymes (Acute) Date of Admission: 05/22/19 Date of Discharge: 05/24/19 - Primary Discharge Diagnosis Active and Suspected Problems Elevated liver enzymes secondary to acute hep A Hepatitis C History of IV drug abuse Schizophrenia Hypothyroidism - Secondary Discharge Diagnosis Chronic Problems Hypothyroidism (Chronic) GERD (gastroesophageal reflux disease) (Chronic) Schizophrenia (Chronic) Hospital Course and Treatment Imaging Results: US/Abdomen Limited IMPRESSION: Mild degree of fatty infiltration of the liver. Mild degree of gallbladder wall thickening. Operations: None Procedures: None Summary of Care Provided: Hospital course: The patient is a 59 year old M with past medical history of schizophrenia, IV drug abuse, hypothyroidism, who presented to the emergency room with abnormal labs markedly elevated liver enzymes, of 11.4 and haley jaundice. He was admitted to the PCU and placed on supportive care with IV fluids. Acetaminophen level is negative, lipase and CPK were normal. He denied alcohol use. Acute hepatitis panel was drawn. This did come back positive for hepatitis A IgM, and hepatitis C antibody was also positive. He gradually had improvement in his LFTs. He had no abdominal pain, nausea, vomiting, diarrhea. Abdominal ultrasound showed mild degree of fatty infiltration, mild degree of gallbladder wall thickening. He was advised to follow-up with his PCP in 1 to 2 weeks and with gastroenterology in 3 to 4 weeks. He was discharged home in stable condition. He needs to avoid IV drug use, acetaminophen use, alcohol use. This patient was seen by Abner Anderson PA-C under the supervision of Doctor Marjorie. [] Patient Problems: Active and Suspected Problems Elevated liver enzymes (Acute) - Physical Exam Vitals/I&O's: Vital Signs Temp Pulse Resp BP Pulse Ox 97.5 F L 60 18 121/72 H 99 05/24/19 11:29 05/24/19 11:29 05/24/19 11:29 05/24/19 11:29 05/24/19 11:29 Oxygen Delivery Method Room Air Weight: 130 lb 1.164 oz Body Mass Index (BMI) 19.8 Intake and Output for Last 24 Hours 05/22/19 05/23/19 05/24/19 23:59 23:59 23:59 Intake Total 606.25 / 606.25 3353.92 / 3353.92 1690.00 / 1690.00 Balance 606.25 / 606.25 3353.92 / 3353.92 1690.00 / 1690.00 General: Alert, Oriented x3, Cooperative HEENT: Atraumatic, PERRLA, EOMI, Normocephalic, - - jaundice Neck: Supple, No JVD, Negative Carotid Bruits Lungs: Clear to auscultation, Normal air movement Cardiovascular: Regular rate, No murmurs Abdomen: Bowel Sounds Present, Soft, Non Tender Extremities: No edema, Capillary Refill Less than 3 Seconds Skin: No rashes, No breakdown Musculoskeletal: No Tenderness to Palpation of Joints or Extremities Neurological: Cranial nerves II-XII grossly intact Psych/Mental Status: Normal Affect, Appropriate Laboratory Results 05/22/19 20:40: Hepatitis A IgM Ab Positive H, Hep Bs Antigen Negative, Hep B Core IgM Ab Negative, Hepatitis C Ab (EIA) >11.0 H 05/24/19 05:36: Sodium 134 L, Potassium 3.5, Chloride 105, Carbon Dioxide 23.0, Anion Gap 6, BUN 10, Creatinine 0.50 L, Estim Creat Clear Calc 131.11, Est GFR (MDRD) Af Amer 221, Est GFR (MDRD) Non-Af 182, BUN/Creatinine Ratio 20.2 H, Glucose 90, Calcium 7.3 L, Total Bilirubin 9.60 H, AST 286 H, ALT 1175 H, Alkaline Phosphatase 137 H, Total Protein 5.6 L, Albumin 1.9 L, Globulin 3.7, Albumin/Globulin Ratio 0.5 L Current Medications Aripiprazole (Abilify) 30 mg PO DAILY [facility] Last Admin: 05/24/19 09:57 Dose: 30 mg Documented by: Enoxaparin Sodium (Lovenox) 40 mg SC DAILY [facility] Last Admin: 05/24/19 09:59 Dose: Not Given Documented by: Glucagon () 1 mg IM .X1 PRN PRN Reason: Hypoglycemia Dextrose (Dextrose 10%-Water) 250 mls @ 999 mls/hr IV .Q16M PRN; Protocol PRN Reason: HYPOGLYCEMIA Sodium Chloride () 250 mls @ 15 mls/hr IV .[id number] PRN PRN Reason: Saline Flush Sodium Chloride () 250 mls @ 15 mls/hr IV .[id number] PRN PRN Reason: Additional IVPB Infusion Sodium Chloride () 1,000 mls @ 100 mls/hr IV .Q10H [facility] Last Infusion: 05/24/19 12:15 Dose: 0 mls/hr Documented by: Levothyroxine Sodium (Synthroid) 175 mcg PO DAILY@0600 [facility] Last Admin: 05/24/19 05:55 Dose: Not Given Documented by: Nutritional Formula (Lactose Free) (Ensure Enlive) 120 ml PO 4X/DAY [facility] Last Admin: 05/24/19 09:56 Dose: 120 ml Documented by: Ondansetron HCl (Zofran) 4 mg IV Q8H PRN PRN PRN Reason: NAUSEA/VOMITING Last Admin: 05/23/19 16:21 Dose: 4 mg Documented by: Oxycodone HCl (Oxyir) 5 mg PO Q6H PRN PRN PRN Reason: Pain Score 6-10/10 Last Admin: 05/24/19 06:59 Dose: 5 mg Documented by: Senna/Docusate Sodium (Senokot-S, Kenzie-Colace) 2 tablet PO BID PRN PRN PRN Reason: Constipation Sodium Chloride () 10 - 40 ml IV UD PRN PRN Reason: SALINE FLUSH Discharge Diet: No Restrictions Discharge Activity: Return to Normal Activity Home Medications: Medications to take at Discharge Aripiprazole 30 mg PO DAILY 05/22/19 Levothyroxine Sodium 175 mcg PO DAILY 05/22/19 Primary Care Physician: Robin Ocampo MD [Primary Care Provider] - Please follow up with your Primary Care Physician in: 1-2 weeks Please Follow Up With: Jarett Casillas MD When: 3-4 weeks Please Follow Up With: Robin Ocampo MD Additional Instructions: no alcohol, tylenol, IV drug use. Disposition: Home Minutes spent on discharge:: 35 Patient Condition:: Stable Medical Necessity - Tobacco Use Smoking Status: Current every day smoker Tobacco Use: Cigarettes Meaningful Use Info Meaningful Use Diagnoses (Choose all that apply): None applicable <Herberth Amador - Last Filed: 05/24/19 13:01> Discharge Date and Diagnosis - Primary Discharge Diagnosis Active and Suspected Problems Elevated liver enzymes (Acute) - Secondary Discharge Diagnosis Chronic Problems Hypothyroidism (Chronic) GERD (gastroesophageal reflux disease) (Chronic) Schizophrenia (Chronic) Hospital Course and Treatment Operations: None Procedures: None Summary of Care Provided: Patient seen and examined independently. Data reviewed. I agree with the above note by the physician sales operations assistant. The patient is a 59 year old M presents with jaundice. Admitted found to have hepatitis. Eventually, was positive of Hepatitis A and C (known to have C). Overall LFTs trending down. DW ID recommended no vaccination nor IVIG. [] - Physical Exam Vitals/I&O's: Vital Signs Temp Pulse Resp BP Pulse Ox 36.4 C L 60 18 121/72 H 99 05/24/19 11:29 05/24/19 11:29 05/24/19 11:29 05/24/19 11:29 05/24/19 11:29 Oxygen Delivery Method Room Air Weight: 59 kg Body Mass Index (BMI) 19.8 Intake and Output for Last 24 Hours 05/22/19 05/23/19 05/24/19 23:59 23:59 23:59 Intake Total 606.25 / 606.25 3353.92 / 3353.92 1690.00 / 1690.00 Balance 606.25 / 606.25 3353.92 / 3353.92 1690.00 / 1690.00 General: Alert, Cooperative HEENT: Atraumatic, PERRLA, EOMI, - - jaundice. icterus. Lungs: Clear to auscultation, Normal air movement, No rhonchi, No wheeze Cardiovascular: Regular rate, Regular Rhythm, Normal S1, Normal S2, No murmurs Abdomen: Bowel Sounds Present, Soft, Non Tender Skin: No rashes, No breakdown Psych/Mental Status: Normal Affect, Appropriate Laboratory Results 05/22/19 20:40: Hepatitis A IgM Ab Positive H, Hep Bs Antigen Negative, Hep B Core IgM Ab Negative, Hepatitis C Ab (EIA) >11.0 H 05/24/19 05:36: Sodium 134 L, Potassium 3.5, Chloride 105, Carbon Dioxide 23.0, Anion Gap 6, BUN 10, Creatinine 0.50 L, Estim Creat Clear Calc 131.11, Est GFR (MDRD) Af Amer 221, Est GFR (MDRD) Non-Af 182, BUN/Creatinine Ratio 20.2 H, Glucose 90, Calcium 7.3 L, Total Bilirubin 9.60 H, AST 286 H, ALT 1175 H, Alkaline Phosphatase 137 H, Total Protein 5.6 L, Albumin 1.9 L, Globulin 3.7, Albumin/Globulin Ratio 0.5 L Current Medications Aripiprazole (Abilify) 30 mg PO DAILY [facility] Last Admin: 05/24/19 09:57 Dose: 30 mg Documented by: Enoxaparin Sodium (Lovenox) 40 mg SC DAILY [facility] Last Admin: 05/24/19 09:59 Dose: Not Given Documented by: Glucagon () 1 mg IM .X1 PRN PRN Reason: Hypoglycemia Dextrose (Dextrose 10%-Water) 250 mls @ 999 mls/hr IV .Q16M PRN; Protocol PRN Reason: HYPOGLYCEMIA Sodium Chloride () 250 mls @ 15 mls/hr IV .[id number] PRN PRN Reason: Saline Flush Sodium Chloride () 250 mls @ 15 mls/hr IV .[id number] PRN PRN Reason: Additional IVPB Infusion Sodium Chloride () 1,000 mls @ 100 mls/hr IV .Q10H [facility] Last Infusion: 05/24/19 12:15 Dose: 0 mls/hr Documented by: Levothyroxine Sodium (Synthroid) 175 mcg PO DAILY@0600 [facility] Last Admin: 05/24/19 05:55 Dose: Not Given Documented by: Nutritional Formula (Lactose Free) (Ensure Enlive) 120 ml PO 4X/DAY [facility] Last Admin: 05/24/19 09:56 Dose: 120 ml Documented by: Ondansetron HCl (Zofran) 4 mg IV Q8H PRN PRN PRN Reason: NAUSEA/VOMITING Last Admin: 05/23/19 16:21 Dose: 4 mg Documented by: Oxycodone HCl (Oxyir) 5 mg PO Q6H PRN PRN PRN Reason: Pain Score 6-10/10 Last Admin: 05/24/19 06:59 Dose: 5 mg Documented by: Senna/Docusate Sodium (Senokot-S, Kenzie-Colace) 2 tablet PO BID PRN PRN PRN Reason: Constipation Sodium Chloride () 10 - 40 ml IV UD PRN PRN Reason: SALINE FLUSH Disposition: Home Minutes spent on discharge:: 35 Patient Condition:: Stable Meaningful Use Info Meaningful Use Diagnoses (Choose all that apply): None applicable Code Visit Inpatient E&M: 47374 Disch Hosp
--- NOTE | 2019-05-24 12:53 | CASEMGMT ---
SCOTT received a return call from Divya patient's guardian. SCOTT told her patient is being discharged today and that he has Hepatitis A. She asked if that is contagious and SW told her it is. SCOTT told her he needs to practice good hand hygiene. She said patient lives in a boarding house like setting. The flatbed truck driver of the home rents out rooms and there is a common area. She will call his medical case manager to come and pick him up. SW received a call from patient's medical case manager and he asked when patient could be discharged. The nurse was standing there and said anytime. Patient's medical case manager said he would be in to get patient. Plan: d/c home with his roommate and picked up by his medical case manager from [facility]. Jahaira NAILS MSW
--- NOTE | 2019-05-24 14:24 | CASEMGMT ---
Patient's counter caser has not arrived to brain picker patient. SW called [facility] and left a message for Jeremiah Washington, patient's counter caser inquiring when he would be in to brain picker patient. Jahaira SEVILLA
[2019-05-24] MEDS: Levothyroxine 175 MCG Tablet PO (14:55)
--- NOTE | 2019-05-24 14:55 | CASEMGMT ---
Patient's case preparer and liner is here at [facility] to curing pickling packer patient. RN is aware. Jahaira SEVILLA
[2019-05-24 17:14] LABS: CMV Acute Antibody IgM < 30.0 AU/mL (0.0-29.9); EBV Acute VCA IgM < 36.0 U/mL (0.0-35.9); EBV Early Antigen IgG 45.4 U/mL (0.0-8.9); EBV-VCA IgG > 600.0 U/mL (0.0-17.9)
== END 2019-05-24 15:04 | disposition home or self-care (01) | DRG 441 ==
LOC: ED 17:27 → PCU 21:33
PROVIDERS: Physician Assistant; Admitting Provider Hospitalist; Emergency Provider Emergency Medicine; PCP Family Medicine
DX: B15.9 Hepatitis A without hepatic coma (principal); E43 Unspecified severe protein-calorie malnutrition; Z68.1 Body mass index [BMI] 19.9 or less, adult; E03.9 Hypothyroidism, unspecified; F20.9 Schizophrenia, unspecified; E87.6 Hypokalemia; K21.9 Gastro-esophageal reflux disease without esophagitis; B19.20 Unspecified viral hepatitis C without hepatic coma; F19.11 Other psychoactive substance abuse, in remission; Z23 Encounter for immunization; F17.210 Nicotine dependence, cigarettes, uncomplicated
CPT/HCPCS: 36415; 76705; 80053; 80074; 80329; 81001; 82140; 82248; 82550; 83036; 83690; 83735; 84439; 84443; 84481; 85025; 85610; 85730; 86645; 86663; 86664; 86665; 97802; 99282; 99406; G0008; J7030; 90686; A4216; G0480; J2405

== ENCOUNTER 2019-06-02 09:31 | Emergency (ER) | payer MEDICARE, MEDICAID, SELFPAY ==
[2019-06-02 09:32] VITALS: BP 109/82; PULSE 79; RESP 18; TEMP 37.1; O2SAT 100; BMI 22.6
--- NOTE | 2019-06-02 09:50 | ED.VIS.GEN ---
History of Present Illness Chief Complaint: Lower Extremity Injury Detail of Chief Complaint: Bilateral foot pain Informant: Patient Onset: Weeks - 1 week Context: Gradual Onset Current Severity: Mild Maximum Severity: Moderate Narrative: Patient presents with pain to his bilateral feet for the past week or so. He describes it as a stinging pain. Feet are slightly swollen. He denies any specific injury. He states swelling will seem to come and go. He denies any calf pain. - Past Medical History (1) GERD (gastroesophageal reflux disease) Status: Chronic (2) Hypothyroidism Status: Chronic (3) Schizophrenia Status: Chronic Past Medical History - Allergies and Home Meds Allergies/Adverse Reactions: Allergies venom-honey bee [bee venom (honey bee)] Allergy (Verified 05/22/19 16:15) Swelling Primary Care Physician: Robin Ocampo MD [Primary Care Provider] - Prior records reviewed: Yes Surgical History: no surgical history Smoking Status: Current every day smoker - Family History Maternal Family History: Reports: Diabetes, Hypertension Paternal Family History: Reports: Cancer Sibling Family History: Reports: COPD, Hypertension Review of Systems General: Denies: Chills, Fever Eyes: Denies: Visual changes - bilaterally ENT: Denies: Bilateral ear pain Cardiovascular: Denies: Chest pain, Palpitations Respiratory: Denies: Dyspnea, Cough Gastrointestinal: Denies: Abdominal pain, Nausea, Vomiting, Diarrhea Genitourinary: Denies: Dysuria Musculoskeletal: Reports: Swelling, Extremity Pain Neurological: Denies: Headache Hematologic: Denies: Easy bruising Allergy: Denies: Uticaria Physical Exam Vital Signs/Narrative: Vital Signs Temp Pulse Resp BP Pulse Ox 06/02/19 09:32 98.7 F 79 18 109/82 H 100 Inital Vital Signs reviewed: Yes General: Well nourished, Well developed Head: Normocephalic ENT: Moist mucous membranes Neck: Supple Cardiovascular: Regular rate, Regular rhythm Respiratory: No distress, CTA bilaterally Abdomen: Soft, Nontender Extremities: - - Bilateral feet are slightly edematous. He has distended capillaries giving an erythematous appearance but no sign of cellulitis. No open wounds are noted. He does have 3+ edema on the lower extremities with no calf tenderness. Neurological: Alert, Oriented x3, Normal Strength, Normal Sensation Psychological: Normal affect Diagnostic/Tx/Re-eval - Medical Decision Making Patient's exam findings are consistent with dependent edema. I see no sign of skin breakdown or infection. Feet are cleansed and light compression with Damon wraps are performed. Patient will follow-up with podiatry as needed. I do not feel there is any imaging or laboratory testing that would beneficial or change our course of treatment. ED Disposition - Plan for ED Patient: Disposition: Home or Assisted Living Diagnosis: Edema Instructions: ED Peripheral Edema, Unilateral Referrals: Robin Ocampo MD [Primary Care Provider] - David Pompa DPM [STAFF PHYSICIAN] - 1 Week
[2019-06-02 10:26] VITALS: BP 125/85; PULSE 63; RESP 18; O2SAT 100
[2019-06-02 10:27] VITALS: BP 125/85; PULSE 63; RESP 18; TEMP 37.1; O2SAT 100
== END 2019-06-02 10:39 | disposition home or self-care (01) ==
PROVIDERS: Emergency Provider Emergency Medicine; PCP Family Medicine; Referring Provider Family Medicine
DX: R60.0 Localized edema (principal); M79.672 Pain in left foot; M79.671 Pain in right foot; E03.9 Hypothyroidism, unspecified; F20.9 Schizophrenia, unspecified; Z79.899 Other long term (current) drug therapy; F17.200 Nicotine dependence, unspecified, uncomplicated
CPT/HCPCS: 99284

== ENCOUNTER → 2019-06-04 11:29 | Outpatient (CLI) | payer MEDICARE, SELFPAY ==
[2019-06-02 09:32] VITALS: BMI 22.6
[2019-06-04 14:19] LABS: AST(SGOT) 62 U/L (15-37); Alanine Aminotransfer ALT/SGPT 131 U/L (16-61); Albumin, Serum 2.2 g/dL (3.2-5.0); Alkaline Phosphatase 131 U/L (45-117); Anion Gap 5 (5-15); BUN 16 mg/dL (7-18); BUN/Creat Ratio 29.4 RATIO (10-20); Bilirubin, Direct 2.73 mg/dL (0.00-0.30); Calcium,Total 7.9 mg/dL (8.5-10.1); Chloride 108 mmol/L (98-107); Creatinine, Serum 0.54 mg/dL (0.70-1.30); EST Glomerular Filtration Rate 163 mL/min (>60); Est Glom Filt Rate - Afr Amer 197 mL/min (>60); Globulin 4.2 g/dL (2.2-4.2); Glucose 89 mg/dL (74-106); Protein, Total 6.4 g/dL (6.4-8.2); Sodium Level 140 mmol/L (136-145)
== END ==
PROVIDERS: PCP Family Medicine; Referring Provider Family Medicine; Visit Provider Family Medicine
DX: B15.9 Hepatitis A without hepatic coma (principal)
CPT/HCPCS: 36415; 80048; 80076

== ENCOUNTER 2019-06-09 19:06 | Emergency (ER) | payer MEDICARE, MEDICAID, SELFPAY ==
[2019-06-09 19:07] VITALS: BP 133/79; PULSE 85; RESP 18; TEMP 36.4; O2SAT 99; BMI 19.7
--- NOTE | 2019-06-09 19:14 | ED.DCSUM_ITS ---
History of Present Illness Chief Complaint: Lower Extremity Injury Informant: Patient Onset: Days Context: - - Unknown Timing: Continuous Quality: Patient is a poor informant and uncertain why he is here Location: Problem with feet Current Severity: - - Unable to quantitate or qualitate Maximum Severity: - - Unable to quantitate or qualitate Worsened by: Unknown Relieved by: Nothing Associated Symptoms: No associated symptoms Narrative: Patient is a 59-year-old male with history of mental illness who presents because of feet pain according to triage. When asked specifically why he is here he had no response initially. He then stated his feet. Records were reviewed and he was seen for feet pain on June 02. He denies fever or chills. He denies exposure to cold or wet conditions. He has been sitting a lot. He does not have a residence of his own. He states he is staying at [facility]. He denies drainage from the wounds. He denies history of congestive heart failure. He denies chest pain or shortness of breath. He reports 5 pound weight gain. He does admit to smoking. Denies alcohol or drug use. Prior similar symptoms: Yes Recent Illness/Hospitalization: Yes - Past Medical History (1) Elevated liver enzymes Status: Acute (2) GERD (gastroesophageal reflux disease) Status: Chronic (3) Hypothyroidism Status: Chronic (4) Schizophrenia Status: Chronic Past Medical History - Allergies and Home Meds Allergies/Adverse Reactions: Allergies venom-honey bee [bee venom (honey bee)] Allergy (Verified 05/22/19 16:15) Swelling Primary Care Physician: Robin Ocampo MD [Primary Care Provider] - Surgical History: no surgical history Lives: Friends Smoking Status: Current every day smoker Alcohol: None Drugs: None - Family History Maternal Family History: Reports: Diabetes, Hypertension Paternal Family History: Reports: Cancer Sibling Family History: Reports: COPD, Hypertension Review of Systems General: Denies: Chills, Fever, Weight loss Cardiovascular: Denies: Chest pain, Palpitations Respiratory: Denies: Dyspnea, Cough, Dyspnea on exertion, Orthopnea, Paroxysmal nocturnal dyspnea Gastrointestinal: Denies: Abdominal pain, Nausea, Vomiting, Diarrhea, Melena, Hematochezia Musculoskeletal: Reports: Swelling. Denies: Myalgias, Arthralgias, Neck pain, Back pain, Extremity Pain, -, - Skin: Reports: Rash, Abrasions, Wounds Neurological: Denies: Headache, Weakness, Parasthesia, Numbness, -, - Hematologic: Denies: Easy bruising, Easy bleeding Allergy: Denies: Uticaria, Swelling of the mouth Physical Exam Vital Signs/Narrative: Vital Signs Temp Pulse Resp BP Pulse Ox 06/09/19 19:07 97.6 F L 85 18 133/79 H 99 Inital Vital Signs reviewed: Yes General: Well nourished, Well developed, Unkempt, No Acute Distress Head: Normocephalic, Atraumatic Eyes: Perrl, EOMI. Negative for: Pale conjunctiva, Scleral icterus ENT: Moist mucous membranes, No rhinorrhea Neck: Supple, Nontender, No lymphadenopathy, No JVD Cardiovascular: Regular rate, Regular rhythm Respiratory: No distress, CTA bilaterally, Chest nontender Abdomen: Soft, Nontender, Nondistended, Normal bowel sounds, - - No fluid wave Extremities: Nontender, Edema - Marked pitting edema of the feet and right and left leg Skin: Normal color, Rash - Areas of excoriation with infection dorsal surface left foot. There are numerous areas of excoriation without infection involving the right foot and the right and left leg. There is evidence of dyshidrotic eczema as well. Neurological: Alert, Cranial nerves II-XII grossly intact, Normal Strength, Normal Sensation Psychological: - - Affect is restrictive. Patient is not appropriate. He is not suicidal homicidal. Diagnostic/Tx/Re-eval - Medical Decision Making Patient with dependent lymphedema. There is evidence of cellulitis dorsum of the left foot. Since his vital signs are normal and he has no symptoms of fever or chills he was treated with antibiotics. Laboratory testing was not obtained. ED Disposition - Plan for ED Patient: Disposition: Home or Assisted Living Diagnosis: Cellulitis of foot without toes, Dyshidrotic eczema, Dependent lymphedema due to impaired mobility Instructions: Cellulitis, Lymphedema Prescriptions: Smz/Tmp Ds [Bactrim Ds] 1 tab PO BID #14 tab Transmission Status: Pending to [facility] [address] Cephalexin [Keflex] 500 mg PO 4X/DAY #28 cap Transmission Status: Pending to [facility] [address] Referrals: Robin Ocampo MD [Primary Care Provider] - 3-5 Days
[2019-06-09] MEDS: Cephalexin 250 MG Capsule 500 MG PO (19:37)
[2019-06-09] MEDS: Smz/Tmp Ds Tablet 1 TABLET PO (19:38)
[2019-06-09 19:39] VITALS: BP 138/82; PULSE 78; RESP 16; O2SAT 99
--- NOTE | 2019-06-09 20:20 | ED.RN ---
AMANDA WAS CALLED FOR A RIDE HOME, THEY RIDE PROGRAM INFORMED THIS NURSE THAT THE RIDE WOULD ARRIVE BETWEEN 2024 AND 2314. PT MADE AWARE AND WAS INFORMED THAT HE NEEDED TO WAIT IN THE WAITING ROOM.
== END 2019-06-09 20:22 | disposition home or self-care (01) ==
PROVIDERS: Emergency Provider Emergency Medicine; PCP Family Medicine
DX: L03.116 Cellulitis of left lower limb (principal); L30.1 Dyshidrosis [pompholyx]; I89.0 Lymphedema, not elsewhere classified; K21.9 Gastro-esophageal reflux disease without esophagitis; E03.9 Hypothyroidism, unspecified; F20.9 Schizophrenia, unspecified; Z79.899 Other long term (current) drug therapy; F17.200 Nicotine dependence, unspecified, uncomplicated
CPT/HCPCS: 99285

== ENCOUNTER → 2019-06-12 06:40 | Outpatient (CLI) | payer MEDICARE, SELFPAY ==
[2019-06-09 19:07] VITALS: BMI 19.7
--- NOTE | 2019-06-12 07:43 | CT_ITS ---
STUDY: LOW DOSE CT LUNG CANCER SCREENING REASON FOR EXAM: Male, 59 years old. PT STATED SMOKER HX 2PPD X 39 YEARS. NOW SMOKES LESS THAN 1/2PPD. RADIATION DOSAGE (If Supplied By Facility): CTDIvol = ( 2.01 ) mGy, DLP = ( 78.76 ) mGycm TECHNIQUE: No contrast was administered. Low dose technique was utilized (average mAS-38 and kVp 120). 1.25 mm axial source images with a slice interval of 1.25-mm were reconstructed in lung windows. 2.5 mm axial source images with a slice interval of 2.5-mm were reconstructed in lung windows. 5.0 mm axial source images with a slice interval of 5.0-mm were reconstructed in soft tissue windows. Nodule measured using lung windows on PACS and/or independent workstation with automated measurement of minimum and maximum diameter. Nodule measurement reported as average diameter rounded to the nearest whole number. Growth is defined as an increase ins size of greater than 1.5 mm. COMPARISON: Comparison is made with prior examination dated December 06, 2013. NODULES: There is a 1.9 cm x 1.2 cm inhomogeneous nodule in the anterior aspect of the right middle lobe. This is in an area of the bronchiectasis and most likely scarring. On prior examination, there was dense consolidation in the right upper lobe and right middle lobe. This most likely evidence post pneumonic scarring. Emphysema: Mild degree of emphysematous changes. Aorta: Mild atherosclerotic plaque formation. Coronary arteries: Coronary artery calcification. Mediastinal nodes: Small benign-appearing mediastinal lymph nodes. Other chest and abdominal findings: CT/Low Dose CT Lung Screening IMPRESSION: Lung-RADS category 2 - Continue annual screening with LDCT in 12 months. IMPORTANT NOTES FOR USE: ACR Lung-RADS Version 1.0 Assessment Categories Release Date: August 26, 2013 Category: Coded 0-4 bases on nodule(s) with highest degree of suspicion. Negative screen is defined as categories 1 and 2; a positive screen is defined as categories 3 and 4. Category 3 and 4A nodules that are unchanged on interval CT should be coded as category 2, and individuals returned to screening in 12 months. Category 4X: Category 3 or 4 nodules with additional imaging findings that increase the suspicion of lung cancer, such as spiculation, GGN that doubles in size in 1 year, enlarged lymph notes, etc. Category Modifiers: S (significant finding unrelated to lung cancer) and C (prior history of treated lung cancer) may be added to the 0-4 Lung-RADS Electronically Signed: Giovanny Shoemaker, at 11:05 EST , Service support ,
--- NOTE | 2019-06-12 07:58 | US_ITS ---
STUDY: ABDOMINAL ULTRASOUND - RIGHT UPPER QUADRANT REASON FOR VISIT: Male, 59 years old JAUNDICE TECHNIQUE: Ultrasound evaluation of the right upper quadrant was performed with real-time and static mendez-scale imaging. TECHNICAL QUALITY: Adequate. COMPARISON: 05/23/2019 FINDINGS: Liver: The liver measures 15.5 cm. There is normal echogenicity of the liver. The bile ducts are within normal limits. There is hepatic color flow. The direction of portal flow is hepatopetal. There is no demonstrated mass lesion. Gallbladder: Normal distended gallbladder. The gallbladder wall measures 2 mm. There is a negative sonographic Roland''s sign. There is no pericholecystic fluid. There are gallbladder polyps. Common Bile Duct (C.B.D.): The common bile duct measures 4 mm. Pancreas: Normal size of the head, body and tail of the pancreas. There is normal echogenicity of the pancreas. There is no demonstrated pancreatic mass or cyst. Right Kidney: Normal size of the right kidney. The right kidney measures 10.9 cm. Normal renal cortex. The right cortex measures 1.4 cm. 2 cm exophytic cyst in the upper pole the right kidney. There is no right hydronephrosis. US/Abdomen Limited IMPRESSION: Cholesterolosis. Electronically Signed: Rah Duong MD at 13:31 EST Tel , Service support ,
--- NOTE | 2019-06-14 09:15 | PFT ---
INTRODUCTION: The patient is a 59-year-old male that presents for pulmonary function studies secondary to a diagnosis of shortness of breath. Respiratory therapy reports good patient effort. Bronchodilators were used during testing. INTERPRETATION: Forced expiration spirometry demonstrates the presence of a mild large airways obstructive ventilatory defect. There was no significant response to aerosolized bronchodilators. Spirograms are of good quality and do not plateau indicating slow emptying of the lungs. The respiratory flow volume loop reveals a degree of flattening of the expiratory limb concerning for a variable extrathoracic obstruction. Body plethysmography was performed and reveals an elevated TLC to 124% of predicted, indicative of underlying hyperinflation. Diffusion capacity by single breath CO is within normal limits at 98% of predicted. IMPRESSION: Irreversible mild large airways obstructive ventilatory defect with associated hyperinflation and preserved diffusing capacity.
== END ==
PROVIDERS: PCP Family Medicine; Referring Provider Family Medicine; Visit Provider Family Medicine
DX: R17 Unspecified jaundice (principal); R06.02 Shortness of breath; F17.210 Nicotine dependence, cigarettes, uncomplicated
CPT/HCPCS: 76705; 94060; 94726; 94729; G0297

== ENCOUNTER → 2019-11-06 13:39 | Outpatient (CLI) | payer MEDICARE, MEDICAID, SELFPAY ==
[2019-11-06 13:43] LABS: Bacteria 0 SEEN /hpf (None Seen); Red Blood Cells-Urine 0 SEEN /hpf (0-5); Squamous Epithelial Cells - UA 0 SEEN /hpf (0-5); White Blood Cells 0 SEEN /hpf (0-5)
[2019-11-06 15:27] LABS: Color, Urine Yellow (Yellow); Glucose, Dipstick Normal (Normal); Ketone-Dipstick Negative (Negative); Leukocyte Esterase-Dipstick Negative /ul (Negative); Nitrite-Dipstick Negative (Negative); Occult Blood-Urine Negative /ul (Negative); Protein-Dipstick 15 mg/dl (Negative); Urine Bilirubin Dipstick Negative (Negative); Urine Clarity Sl. Cloudy (Clear); Urine Urobilinogen 1 mg/dl (Normal)
[2019-11-06 15:47] LABS: Hemoglobin A1c 5.8 % (3.8-5.6)
[2019-11-06 15:49] LABS: Hyaline Cast 5-10 SEEN /lpf (0-5); Mucous, Urine 1+ /hpf (<or=2+)
[2019-11-06 15:51] LABS: Absolute Lymphocyte Count 2.04 X10^3/uL (0.83-4.51); Basophil# 0.05 X10^3/uL; Basophil% 0.6 % (0-1); Eosinophil# 0.23 X10^3/uL; Eosinophils% 2.9 % (0-5); Hematocrit 45.3 % (40-54); Hemoglobin 14.3 g/dL (13.0-16.5); Lymphocyte # 2.04 X10^3/ul (4.0); Lymphocyte % 25.3 % (19-41); Mean Corp Hgb Conc 31.6 g/dL (32-36); Mean Corpuscular Hgb 28.9 pg (27.0-32.0); Mean Corpuscular Volume 91.5 fL (80-94); Mean Platelet Vol. 11.6 fl (6.2-12.0); Monocyte% 8.7 % (0-10); NRBC Flagged by Analyzer 0 % (0-5); Neutrophil # 5.02 X10^3/uL (2.7-7.7); Neutrophil % 62.1 % (47-70); Platelet Count 185 K/mm3 (150-450); RBC Distribution Width SD 49.6 fl (35.1-43.9); Red Blood Count 4.95 M/mm3 (4.6-6.2); White Blood Count 8.1 K/mm3 (4.4-11.0)
[2019-11-06 16:17] LABS: ALB/GLOB Ratio 0.9 RATIO (0.9-2.4); AST(SGOT) 53 U/L (15-37); Alanine Aminotransfer ALT/SGPT 60 U/L (16-61); Albumin, Serum 3.7 g/dL (3.2-5.0); Alkaline Phosphatase 56 U/L (45-117); Anion Gap 5 (5-15); BUN 19 mg/dL (7-18); BUN/Creat Ratio 17.4 RATIO (10-20); Calcium,Total 8.9 mg/dL (8.5-10.1); Chloride 102 mmol/L (98-107); Creatinine, Serum 1.09 mg/dL (0.70-1.30); EST Glomerular Filtration Rate 73 mL/min (>60); Est Glom Filt Rate - Afr Amer 89 mL/min (>60); Globulin 3.9 g/dL (2.2-4.2); Glucose 82 mg/dL (74-106); Potassium 4.1 mmol/L (3.5-5.1); Protein, Total 7.6 g/dL (6.4-8.2); Sodium Level 136 mmol/L (136-145); T4 Free Direct 0.46 ng/dL (0.76-1.46)
== END ==
PROVIDERS: PCP Family Medicine; Visit Provider Family Medicine
DX: E03.9 Hypothyroidism, unspecified (principal); F17.210 Nicotine dependence, cigarettes, uncomplicated; R73.02 Impaired glucose tolerance (oral)
CPT/HCPCS: 36415; 80053; 81001; 83036; 84439; 84443; 85025

== ENCOUNTER 2019-11-23 14:02 | Emergency (ER) | payer MEDICARE, MEDICAID, SELFPAY ==
[2019-11-23 14:05] VITALS: BP 137/85; PULSE 74; RESP 18; TEMP 37.1; O2SAT 100; BMI 23.6
--- NOTE | 2019-11-23 14:16 | ED.VIS.GEN ---
History of Present Illness Chief Complaint: Dental Informant: Patient Onset: - - 2 years Current Severity: Mild Maximum Severity: Moderate Narrative: Patient presents with dental pain that he states is been ongoing for the past 2 years. He last saw a dentist 2 years ago. He does not member when he was last on antibiotics. He states he has had trouble eating and drinking coffee lately because of pain and it causes swelling of his gums. - Past Medical History (1) GERD (gastroesophageal reflux disease) Status: Chronic (2) Hypothyroidism Status: Chronic (3) Schizophrenia Status: Chronic Past Medical History - Allergies and Home Meds Allergies/Adverse Reactions: Allergies venom-honey bee [bee venom (honey bee)] Allergy (Verified 05/22/19 16:15) Swelling Primary Care Physician: Robin Ocampo MD [Primary Care Provider] - Prior records reviewed: Yes Surgical History: no surgical history Smoking Status: Current every day smoker - Family History Maternal Family History: Reports: Diabetes, Hypertension Paternal Family History: Reports: Cancer Sibling Family History: Reports: COPD, Hypertension Review of Systems General: Denies: Chills, Fever Eyes: Denies: Visual changes - bilaterally ENT: Reports: - - Dental pain. Denies: Bilateral ear pain Cardiovascular: Denies: Chest pain Respiratory: Denies: Dyspnea, Cough Gastrointestinal: Denies: Abdominal pain, Nausea, Vomiting, Diarrhea Genitourinary: Denies: Dysuria Musculoskeletal: Denies: Extremity Pain Hematologic: Denies: Easy bruising, Easy bleeding Allergy: Denies: Uticaria Physical Exam Vital Signs/Narrative: Vital Signs Temp Pulse Resp BP Pulse Ox 11/23/19 14:05 98.8 F 74 18 137/85 H 100 Inital Vital Signs reviewed: Yes General: Well nourished, Well developed Head: Normocephalic ENT: Moist mucous membranes, - - Multiple dental caries. The mandibular central incisors are loose. Posterior pharynx exam is normal. Neck: Supple Cardiovascular: Regular rate, Regular rhythm Respiratory: No distress, CTA bilaterally Abdomen: Soft, Nontender Skin: Normal color Neurological: Alert, Oriented x3 Psychological: Normal affect Diagnostic/Tx/Re-eval - Medical Decision Making Patient be treated the course of Pen-Vee K, first dose given here. He is given a list of dental clinics in the area. He states he does have Motrin to take for pain. ED Disposition - Plan for ED Patient: Disposition: Home or Assisted Living Diagnosis: Pain, dental Instructions: ED Tooth Pain Prescriptions: Penicillin V Potassium 500 mg PO 4X/DAY #40 tablet Referrals: Robin Ocampo MD [Primary Care Provider] - Additional Instructions: Dental list provided.
[2019-11-23] MEDS: Penicillin Vk 250 MG Tablet 500 MG PO (14:31)
[2019-11-23 14:32] VITALS: RESP 18
== END 2019-11-23 14:33 | disposition home or self-care (01) ==
LOC: ED 14:19
PROVIDERS: Emergency Provider Emergency Medicine; PCP Family Medicine
DX: K02.9 Dental caries, unspecified (principal); K08.89 Other specified disorders of teeth and supporting structures; E03.9 Hypothyroidism, unspecified; F20.9 Schizophrenia, unspecified; K21.9 Gastro-esophageal reflux disease without esophagitis; Z79.899 Other long term (current) drug therapy; F17.200 Nicotine dependence, unspecified, uncomplicated
CPT/HCPCS: 99284

== ENCOUNTER 2019-11-25 10:50 | Emergency (ER) | payer MEDICARE, MEDICAID, SELFPAY ==
[2019-11-25 10:51] VITALS: BP 120/89; PULSE 66; RESP 14; TEMP 37.2; O2SAT 100; BMI 21.6
--- NOTE | 2019-11-25 11:55 | CM.ED ---
Social Work Consult: Resources/Supports Informant: Dr. Olivas Met with patient in room. Patient complaining of dental pain and becoming frustrated with any questions that this social and political studies professor ask that is not in relationship to patient dental pain. Patient is stating to be homeless and to have a guardian Jeremiah Felix. Patient [phone] ([facility]). Patient continues to request something for pain and not wanting to speak further with this social and political studies professor. Patient states I need my teeth pulled. Telephone call to Evonne LAND. Patient guardian is actually Bia Soria ([phone]). Patient family preservation caseworker is Jeremiah Washington and follows with Carola Spann N.P. for psychiatric services/medication management of Paranoid Schizophrenia. Telephone call to Bia Soria. Bia confirming to be guardian and giving permission to treat patient. Bia confirms that patient is homeless. Bia states that patient recently stopped taking medication but that patient was to have follow up with family preservation caseworker early this week. Bia states that per welfare case worker patient is open to starting to take medication again. Updated medical team. Collaborating with Dr. Olivas. Plan is for patient to be medicated and then will follow up from there. Jalyn Dumont DAIRY PROCESSING SUPERVISOR, JESU
--- NOTE | 2019-11-25 11:57 | ED.DCSUM_ITS ---
History of Present Illness Chief Complaint: Dental Informant: Patient Narrative: 59-year-old male with history of schizophrenia presents with dental pain. He states that all his teeth. He states he needs to make an appointment with a dentist. Nuys any trauma to his teeth. He is not had a fever. He does not have any facial swelling. No problems swallowing or breathing. Patient does wish for us to speak to his case manager specialist. Past Medical History - Allergies and Home Meds Allergies/Adverse Reactions: Allergies venom-honey bee [bee venom (honey bee)] Allergy (Verified 11/25/19 12:05) Swelling Primary Care Physician: Robin Ocampo MD [Primary Care Provider] - Prior records reviewed: Yes Surgical History: no surgical history Smoking Status: Current every day smoker - Family History Maternal Family History: Reports: Diabetes, Hypertension Paternal Family History: Reports: Cancer Sibling Family History: Reports: COPD, Hypertension Review of Systems General: Denies: Chills, Fever, Sweats Eyes: Denies: Visual changes - bilaterally, Diplopia ENT: Reports: - - Diffuse dental pain. Denies: Rhinorrhea, Sore throat Cardiovascular: Denies: Chest pain, Palpitations Respiratory: Denies: Dyspnea, Cough, Dyspnea on exertion Gastrointestinal: Denies: Abdominal pain, Nausea, Vomiting, Diarrhea, Melena, Hematochezia Genitourinary: Denies: Dysuria, Hematuria, Frequency Musculoskeletal: Denies: Back pain, Extremity Pain Skin: Denies: Rash, Wounds Neurological: Denies: Headache, Weakness, Numbness Physical Exam Vital Signs/Narrative: Vital Signs Temp Pulse Resp BP Pulse Ox 11/25/19 10:51 98.9 F 66 14 120/89 H 100 Inital Vital Signs reviewed: Yes General: Unkempt, No Acute Distress Head: Normocephalic, Atraumatic Eyes: Perrl, EOMI ENT: Moist mucous membranes, No rhinorrhea, - - Diffuse dental caries and pain to palpation throughout all teeth. No apparent swelling. Neck: Supple, Nontender Cardiovascular: Regular rate, Regular rhythm, No murmurs Respiratory: No distress, CTA bilaterally, Chest nontender Abdomen: Soft, Nontender, Nondistended, Normal bowel sounds Back: Nontender, Normal Inspection Extremities: Nontender, No edema Skin: Normal color, No rash Neurological: Alert, Oriented x3, Cranial nerves II-XII grossly intact, Normal Strength, Normal Sensation Psychological: Normal affect, Normal Mood Diagnostic/Tx/Re-eval - Medical Decision Making Patient presents with dental pain. He is partially edentulous and has multiple dental caries did speak to his case manager specialist who gave us consent to treat. He was given Naprosyn and Augmentin. She will arrange for him to follow-up with a dentist. He is stable at this time. Impression 1. Dental pain 2. Dental infection 3. Multiple dental caries ED Disposition - Plan for ED Patient: Disposition: Home or Assisted Living Instructions: ED CAVITY Dental, ED ABSCESS DENTAL Prescriptions: Amoxicillin/Potassium Clav [Augmentin 875-125 Tablet] 1 ea PO BID #20 tab Prescription Printed Ibuprofen 600 mg PO 4X/DAY #30 tab Prescription Printed Referrals: Robin Ocampo MD [Primary Care Provider] -
[2019-11-25] MEDS: Naproxen 500 MG Tablet PO (12:02)
[2019-11-25] MEDS: Amox/Clavulanate 875 MG Tablet PO (12:02)
--- NOTE | 2019-11-25 12:22 | CM.ED ---
Social Work Per nursing staff patient is wondering if Bia will be coming to the ED today to provide transportation to home/[facility] (patient is homeless) for patient. Per prior conversation patient is not wanting to go to [facility]. Patient is also to follow up with a dentist in the community. Telephone call to Bia (Guardian). Bia states to not out today and to not be able to come and pick patient up. Bia states that patient case investigator might be able to assist with this. This social worker aide also updating Bia on need for patient to follow up with a dentist. Telephone to [facility], Jeremiah Washington. Voicemail left requesting return phone call. Jalyn SEVILLA, JESU
--- NOTE | 2019-11-25 12:37 | CM.ED ---
Social Work Spoke with patient in room. Patient states to not have transit vouchers, I don't know how that works, I don't have a watch. This social services educating patient on process and recommending for patient to have this service. Patient states to have wilcox on hand but to want to wait to hear from patient keycase assembler, Jeremiah Washington to see if a ride can be provided that way. Patient is aware of need for dental care follow up and that Bia is aware of this. Updated medical team. Patient currently wait ride. Jalyn SEVILLA, JESU
--- NOTE | 2019-11-25 14:25 | CM.ED ---
Social Work Telephone call to Darrick LAND. This social work msw inquiring if there is someone covering for Jeremiah Felix as Jeremiah has not responded to phone call from this social work msw. Darrick taking this social workers name and phone number and will contact Jeremiah's supervisor rework and get back to this social work msw. Darrick aware of request for transportation for patient. Jalyn Dumont MSW, JESU
--- NOTE | 2019-11-25 14:47 | CM.ED ---
Social Work Telephone call from Jeremiah Washington at [facility]. Jeremiah is in route to provide transportation to [facility] for patient. Medical team and patient updated. Jalyn Dumont MSW, JESU
[2019-11-25 14:54] VITALS: BP 132/77; PULSE 82; RESP 15; TEMP 36.4; O2SAT 97
== END 2019-11-25 14:58 | disposition home or self-care (01) ==
PROVIDERS: Emergency Provider Student in an Organized Health Care Education/Training Program; PCP Family Medicine
DX: K04.7 Periapical abscess without sinus (principal); K02.9 Dental caries, unspecified; F20.9 Schizophrenia, unspecified; Z79.899 Other long term (current) drug therapy; F17.200 Nicotine dependence, unspecified, uncomplicated
CPT/HCPCS: 99284

== ENCOUNTER → 2020-02-05 13:46 | Outpatient (CLI) | payer MEDICARE, MEDICAID, SELFPAY ==
[2020-02-05 15:12] LABS: Absolute Lymphocyte Count 1.95 X10^3/uL (0.83-4.51); Basophil# 0.03 X10^3/uL; Basophil% 0.4 % (0-1); Eosinophil# 0.28 X10^3/uL; Hematocrit 37.8 % (40-54); Hemoglobin 12.7 g/dL (13.0-16.5); Lymphocyte # 1.95 X10^3/ul (4.0); Lymphocyte % 27.5 % (19-41); Mean Corp Hgb Conc 33.6 g/dL (32-36); Mean Corpuscular Hgb 31.2 pg (27.0-32.0); Mean Corpuscular Volume 92.9 fL (80-94); Mean Platelet Vol. 11.4 fl (6.2-12.0); Monocyte# 0.82 X10^3/uL; Monocyte% 11.6 % (0-10); NRBC Flagged by Analyzer 0 % (0-5); Neutrophil # 3.98 X10^3/uL (2.7-7.7); Neutrophil % 56.2 % (47-70); Platelet Count 196 K/mm3 (150-450); RBC Distribution Width CV 14.9 % (11.6-14.6); RBC Distribution Width SD 51.4 fl (35.1-43.9); Red Blood Count 4.07 M/mm3 (4.6-6.2); White Blood Count 7.1 K/mm3 (4.4-11.0)
[2020-02-05 15:51] LABS: Hemoglobin A1c 5.1 % (3.8-5.6)
[2020-02-05 15:52] LABS: ALB/GLOB Ratio 0.8 RATIO (0.9-2.4); AST(SGOT) 77 U/L (15-37); Alanine Aminotransfer ALT/SGPT 110 U/L (16-61); Albumin, Serum 3.3 g/dL (3.2-5.0); Alkaline Phosphatase 76 U/L (45-117); Anion Gap 6 (5-15); BUN 23 mg/dL (7-18); BUN/Creat Ratio 23.6 RATIO (10-20); Calcium,Total 8.8 mg/dL (8.5-10.1); Chloride 100 mmol/L (98-107); Creatinine, Serum 0.97 mg/dL (0.70-1.30); EST Glomerular Filtration Rate 83 mL/min (>60); Est Glom Filt Rate - Afr Amer 101 mL/min (>60); Glucose 85 mg/dL (74-106); Protein, Total 7.3 g/dL (6.4-8.2); Sodium Level 135 mmol/L (136-145); T4 Free Direct 1.08 ng/dL (0.76-1.46)
== END ==
PROVIDERS: PCP Family Medicine; Referring Provider Family Medicine; Visit Provider Family Medicine
DX: E03.9 Hypothyroidism, unspecified (principal); B19.20 Unspecified viral hepatitis C without hepatic coma; F17.210 Nicotine dependence, cigarettes, uncomplicated; R79.89 Other specified abnormal findings of blood chemistry; R73.02 Impaired glucose tolerance (oral)
CPT/HCPCS: 36415; 80053; 83036; 84439; 84443; 85025; 87521

== ENCOUNTER → 2020-05-05 14:09 | Outpatient (CLI) | payer MEDICARE, MEDICAID, SELFPAY ==
[2020-05-05 15:28] LABS: Absolute Lymphocyte Count 2.36 X10^3/uL (0.83-4.51); Absolute Neutrophil Count 4.9 X10^3/uL (2.0-7.7); Basophil# 0.04 X10^3/uL; Basophil% 0.5 % (0-1); Eosinophil# 0.33 X10^3/uL; Eosinophils% 3.8 % (0-5); Hematocrit 40.8 % (40-54); Hemoglobin 13.3 g/dL (13.0-16.5); Lymphocyte # 2.36 X10^3/ul (4.0); Lymphocyte % 27.5 % (19-41); Mean Corp Hgb Conc 32.6 g/dL (32-36); Mean Corpuscular Hgb 30.3 pg (27.0-32.0); Mean Corpuscular Volume 92.9 fL (80-94); Mean Platelet Vol. 11.8 fl (6.2-12.0); Monocyte# 0.85 X10^3/uL; Monocyte% 9.9 % (0-10); NRBC Flagged by Analyzer 0 % (0-5); Neutrophil # 4.94 X10^3/uL (2.7-7.7); Neutrophil % 57.6 % (47-70); Platelet Count 177 K/mm3 (150-450); RBC Distribution Width CV 13.5 % (11.6-14.6); Red Blood Count 4.39 M/mm3 (4.6-6.2); White Blood Count 8.6 K/mm3 (4.4-11.0)
[2020-05-05 16:04] LABS: Hemoglobin A1c 5.5 % (3.8-5.6)
[2020-05-05 16:06] LABS: ALB/GLOB Ratio 0.9 RATIO (0.9-2.4); AST(SGOT) 43 U/L (15-37); Alanine Aminotransfer ALT/SGPT 53 U/L (16-61); Albumin, Serum 3.8 g/dL (3.2-5.0); Alkaline Phosphatase 72 U/L (45-117); Anion Gap 4 (5-15); BUN 15 mg/dL (7-18); BUN/Creat Ratio 16.3 RATIO (10-20); Chloride 102 mmol/L (98-107); Creatinine, Serum 0.92 mg/dL (0.70-1.30); EST Glomerular Filtration Rate 89 mL/min (>60); Est Glom Filt Rate - Afr Amer 108 mL/min (>60); Globulin 4.2 g/dL (2.2-4.2); Glucose 104 mg/dL (74-106); Potassium 3.6 mmol/L (3.5-5.1); Sodium Level 138 mmol/L (136-145); T4 Free Direct 1.03 ng/dL (0.76-1.46)
== END ==
PROVIDERS: PCP Family Medicine; Referring Provider Family Medicine; Visit Provider Family Medicine
DX: B19.20 Unspecified viral hepatitis C without hepatic coma (principal); E03.9 Hypothyroidism, unspecified; J44.9 Chronic obstructive pulmonary disease, unspecified; R73.02 Impaired glucose tolerance (oral)
CPT/HCPCS: 80053; 83036; 84439; 84443; 85025

== ENCOUNTER → 2020-06-09 12:52 | Outpatient (CLI) | payer MEDICARE, MEDICAID, SELFPAY ==
--- NOTE | 2020-06-09 13:34 | CT_ITS ---
STUDY: LOW DOSE CT LUNG CANCER SCREENING REASON FOR EXAM: Male, 60 years old. LUNG CANCER SCREEN. 2.5 PPD X 40 YEARS RADIATION DOSAGE (If Supplied By Facility): CTDIvol = ( 2.01 ) mGy, DLP = ( 75.50 ) mGycm TECHNIQUE: No contrast was administered. Low dose technique was utilized (average mAS-38 and kVp 120). 1.25 mm axial source images with a slice interval of 1.25-mm were reconstructed in lung windows. 2.5 mm axial source images with a slice interval of 2.5-mm were reconstructed in lung windows. 5.0 mm axial source images with a slice interval of 5.0-mm were reconstructed in soft tissue windows. Nodule measured using lung windows on PACS and/or independent workstation with automated measurement of minimum and maximum diameter. Nodule measurement reported as average diameter rounded to the nearest whole number. Growth is defined as an increase ins size of greater than 1.5 mm. COMPARISON: Comparison is made with prior examination dated 06/12/2019. NODULES: The previously seen 1.9 cm x 1.2 cm inhomogeneous nodule in the anterior aspect of the right middle lobe has almost completely resolved. Mild residual linear increased markings with areas of bronchiectasis persist in the right middle lobe. This most likely represents scarring. Emphysema: Stable mild degree of emphysematous changes more prominent in the upper lobes. Endobronchial lesion: None Aorta: Mild atherosclerotic plaque at the level of the aortic arch. Coronary arteries: Coronary artery calcification. Heart: Unremarkable. Pulmonary artery: Unremarkable. Mediastinal nodes: Small benign-appearing mediastinal nodes. CT/Low Dose CT Lung Screening IMPRESSION: Lung-RADS category 2 - Continue annual screening with LDCT in 12 months. IMPORTANT NOTES FOR USE: ACR Lung-RADS Version 1.0 Assessment Categories Release Date: August 26, 2013 Category: Coded 0-4 bases on nodule(s) with highest degree of suspicion. Negative screen is defined as categories 1 and 2; a positive screen is defined as categories 3 and 4. Category 3 and 4A nodules that are unchanged on interval CT should be coded as category 2, and individuals returned to screening in 12 months. Category 4X: Category 3 or 4 nodules with additional imaging findings that increase the suspicion of lung cancer, such as spiculation, GGN that doubles in size in 1 year, enlarged lymph notes, etc. Category Modifiers: S (significant finding unrelated to lung cancer) and C (prior history of treated lung cancer) may be added to the 0-4 Lung-RADS Electronically Signed: Giovanny Shoemaker MD at 14:01 EST , Service support ,
--- NOTE | 2020-06-10 11:23 | PFT_ITS ---
INTRODUCTION: The patient is a 60-year-old male that presents for pulmonary function studies secondary to a diagnosis of COPD. Respiratory therapy reported the patient had difficulty with some of the maneuvers of testing due to baseline cognitive deficits. Bronchodilators were used during testing. INTERPRETATION: Forced expiration spirometry demonstrates no evidence of a large airways obstructive ventilatory defect. There was no significant response to aerosolized bronchodilators, based upon strict ATS criteria. Spirograms are of fair quality and plateau normally. Body plethysmography was performed and reveals lung volumes to be within normal limits. Diffusing capacity by single breath CO is also within normal limits. When compared to previous pulmonary fun ction studies dated June 2019 there has been a 23% decrease in total lung capacity along with a 17% decrease in DLCO. IMPRESSION: Normal spirometry, lung volumes and diffusing capacity. There have been changes in the patient's PFTs since June 2019, as noted above.
== END ==
PROVIDERS: PCP Family Medicine; Referring Provider Family Medicine; Visit Provider Family Medicine
DX: J44.9 Chronic obstructive pulmonary disease, unspecified (principal); F17.210 Nicotine dependence, cigarettes, uncomplicated
CPT/HCPCS: 71271; 94060; 94726; 94729

== ENCOUNTER → 2020-08-04 11:08 | Outpatient (CLI) | payer MEDICARE, SELFPAY ==
[2020-08-04 12:11] LABS: Absolute Lymphocyte Count 2.14 X10^3/uL (0.83-4.51); Absolute Neutrophil Count 5.7 X10^3/uL (2.0-7.7); Basophil# 0.04 X10^3/uL; Basophil% 0.4 % (0-1); Eosinophil# 0.34 X10^3/uL; Eosinophils% 3.7 % (0-5); Hematocrit 42.9 % (40-54); Hemoglobin 13.8 g/dL (13.0-16.5); Lymphocyte # 2.14 X10^3/ul (4.0); Lymphocyte % 23.5 % (19-41); Mean Corp Hgb Conc 32.2 g/dL (32-36); Mean Corpuscular Hgb 29.6 pg (27.0-32.0); Mean Corpuscular Volume 91.9 fL (80-94); Mean Platelet Vol. 11.7 fl (6.2-12.0); Monocyte% 8.8 % (0-10); NRBC Flagged by Analyzer 0 % (0-5); Neutrophil # 5.69 X10^3/uL (2.7-7.7); Neutrophil % 62.7 % (47-70); Platelet Count 181 K/mm3 (150-450); RBC Distribution Width CV 14.6 % (11.6-14.6); RBC Distribution Width SD 49.4 fl (35.1-43.9); Red Blood Count 4.67 M/mm3 (4.6-6.2); White Blood Count 9.1 K/mm3 (4.4-11.0)
[2020-08-04 12:43] LABS: Hemoglobin A1c 5.7 % (3.8-5.6)
[2020-08-04 12:48] LABS: Amphetamine Urine VISTA NEGATIVE (<1000 ng/mL); Barbiturate Urine VISTA NEGATIVE (< 200 ng/mL); Benzodiazepine Urine VISTA NEGATIVE (< 200 ng/mL); Cocaine Urine VISTA NEGATIVE (< 300 ng/mL); Ecstacy Urine VISTA NEGATIVE (< 500 ng/mL); Methadone Urine VISTA NEGATIVE (< 300 ng/mL); PCP Urine VISTA NEGATIVE (< 25 ng/mL); THC Urine VISTA POSITIVE (< 50 ng/mL); Vista UDS pH Range 6
[2020-08-04 13:00] LABS: AST(SGOT) 49 U/L (15-37); Alanine Aminotransfer ALT/SGPT 50 U/L (16-61); Albumin, Serum 3.8 g/dL (3.2-5.0); Alkaline Phosphatase 68 U/L (45-117); Anion Gap 7 (5-15); BUN 15 mg/dL (7-18); BUN/Creat Ratio 14.6 RATIO (10-20); Calcium,Total 8.9 mg/dL (8.5-10.1); Chloride 102 mmol/L (98-107); Cholesterol 274 mg/dL (200); Creatinine, Serum 1.03 mg/dL (0.70-1.30); EST Glomerular Filtration Rate 78 mL/min (>60); Est Glom Filt Rate - Afr Amer 94 mL/min (>60); Globulin 3.9 g/dL (2.2-4.2); Glucose 97 mg/dL (74-106); High Density Lipoprotein 65 mg/dL; Potassium 3.3 mmol/L (3.5-5.1); Protein, Total 7.7 g/dL (6.4-8.2); Sodium Level 138 mmol/L (136-145); T4 Free Direct 0.44 ng/dL (0.76-1.46); Triglycerides 150 mg/dL; Very Low Density Lipoprotein 30 mg/dL (5-40)
[2020-08-11 08:09] LABS: Cannabinoid Positive (.)
[2020-08-11 14:52] LABS: THC GC/MS Conf 113 ng/mL (Cutoff=10)
== END ==
PROVIDERS: PCP Family Medicine; Visit Provider Family Medicine
DX: E03.9 Hypothyroidism, unspecified (principal); B19.20 Unspecified viral hepatitis C without hepatic coma; R73.02 Impaired glucose tolerance (oral); R03.0 Elevated blood-pressure reading, without diagnosis of hypertension; R82.5 Elevated urine levels of drugs, medicaments and biological substances
CPT/HCPCS: 36415; 80053; 80061; 80307; 83036; 83735; 84439; 84443; 85025; 87521

== ENCOUNTER → 2020-08-25 16:07 | Outpatient (CLI) | payer MEDICARE, MEDICAID, SELFPAY ==
[2020-08-25 17:59] LABS: T4 Free Direct 0.65 ng/dL (0.76-1.46)
== END ==
PROVIDERS: PCP Family Medicine; Referring Provider Family Medicine; Visit Provider Family Medicine
DX: E03.9 Hypothyroidism, unspecified (principal)
CPT/HCPCS: 36415; 84439